=== PATIENT | female | born 1935 | race Caucasian/White ===

== ENCOUNTER 2017-05-30 14:35 | Inpatient (IN) | payer OTHER ==
[~2017-05-30] VITALS: Ht 154.9 cm; Wt 70.3 kg
[~2017-05-30 14:35] MED LIST: ALBUTEROL2.5 MG/3 M INH/SOL; ASPIRIN EC81 M1 PO; ASPIRIN81 M4 PO; AUGMENTIN 875-1 EACH PO; CALCIUM 500 +1 EAC5 PO; DIOVAN80 M1 PO; ESCITALOPRAM OX10 MG PO; FUROSEMIDE20 M1 PO; HYDROCODON-ACE1 EAC2 PO; IPRAT-ALBUT 0.5-3 ML INH; LASIX40 M1 PO; LISINOPRIL10 M1 PO; METOPROLOL TART25 M1 PO; NORVASC2.5 M1 PO; OMEPRAZOLE20 M3 PO; PLAVIX75 M1 PO; PRAVACHOL80 M1 PO; PRAVASTATIN SOD80 M2 PO; PREDNISONE10 M2 PO; PROAIR HFA8.5 GM INH; SENNA S TABLET1 EACH PO; SINGULAIR10 M1 PO; SPIRIVA RESPIMAT4 G1 INH; SPIRIVA18 MCG INH; SYMBICORT 16010.2 GM INH; TESSALON PERLE100 M1 PO; TYLENOL #31 TAB PO
--- NOTE | 2017-05-30 14:58 | ED DYSPNEA/ASTHMA COMPLAINT ---
History of Present Illness General Chief Complaint: Dyspnea (COPD, CHF, Other) Stated Complaint: SOB Source: patient, family Exam Limitations: no limitations Vital Signs & Intake/Output Vital Signs & Intake/Output Vital Signs Date Time Temp Pulse Resp B/P B/P Pulse O2 O2 Flow FiO2 Mean Ox Delivery Rate 05/30 1735 99.0 05/30 1657 99.0 122 24 100/62 94 Room Air 05/30 1633 Room Air Room Air 05/30 1553 100.8 05/30 1513 95 05/30 1449 100.8 105 22 157/97 92 Room Air Allergies Coded Allergies: No Known Allergies (03/16/17) Triage Note: PT TO ED FOR PRODUCTIVE COUGH, SOB AND GENERALZIED WEAKNESS X 1 DAY. Triage Nurses Notes Reviewed? yes Onset: Gradual Duration: day(s): (3) Timing: remote history Severity: moderate Activities at Onset: none Prior Episodes/Possible Cause: occasional episodes Modifying Factors: Improves With: immobilization. Worsens With: movement. Associated Symptoms: cough HPI: Patient is a 81-year-old female with history of asthma and COPD, remote history of pneumonia presenting to the emergency department she complained of worsening shortness of breath, wheezing and cough that has been intermittently productive of yellow sputum over the past 3-4 days. Tactile fevers and chills at home. Generalized malaise. Symptoms rapidly progressed this afternoon. Patient not getting any relief with that home inhalers. No chest pain or palpitations. Positive shortness of breath gets worse with exertion. Denies abdominal pain. No nausea or vomiting. No sick contacts or recent travel. Per daughter patient was admitted in February of last year for pneumonia, symptoms started similarly. (Lily Charles) Reconcile Medications Albuterol Sulfate 2.5 MG/3 ML (0.083 %) VIAL.NEB 1 Vial INH/MANDY Q6H PRN WHEEZING (Reported) Albuterol Sulfate (Proair Hfa) 90 MCG HFA.AER.AD 2 PUF INH Q4-6 PRN PRN asthma (Reported) Aspirin (Ecotrin*) 81 MG TABLET. 1 TAB PO DAILY heart health (Reported) LAST TAKEN 03/17/17 @ 0949 Budesonide/Formoterol Fumarate (Symbicort 160-4.5 Mcg Inhaler) 160 MCG-4.5 MCG/ ACTUATION HFA.AER.AD 2 PUF INH BID ASTHMA (Reported) LAST GIVEN 03/17/17 @ 0949 Calcium Carbonate/Vitamin D3 (Calcium 500 + D Tablet) (Unknown Strength) TABLET (Unknown Dose) PO QAM SUPPLEMENT (Reported) Clopidogrel Bisulfate (Plavix) 75 MG TABLET 1 TAB PO DAILY HEART Escitalopram Oxalate 10 MG TABLET 1 TAB PO DAILY depression (Reported) LAST GIVEN 03/17/17 @ 0949 Furosemide (Lasix) 20 MG TABLET 1 TAB PO DAILY DIURETIC (Reported) Furosemide (Lasix) 40 MG TABLET 1 TAB PO DAILY HEART Hydrocodone/Acetaminophen (Hydrocodon-Acetaminophen 5-325) 5 MG-325 MG TABLET 1 TAB PO Q4H PRN PAIN (Reported) Ipratropium/Albuterol Sulfate (Iprat-Albut 0.5-3(2.5) MG/3 Ml) 0.5 MG-3 MG (2.5 MG BASE)/3 ML AMPUL.NEB 1 VIAL INH Q6H PRN RESP. (Reported) Lisinopril 10 MG TABLET 1 TAB PO DAILY HEART Metoprolol Tartrate 25 MG TABLET 0.5 TAB PO BID HEART Montelukast Sodium (Singulair) 10 MG TABLET 1 TAB PO DAILY ASTHMA COPD Omeprazole 20 MG TABLET.DR 1 TAB PO BID GERD (Reported) Pravastatin Sodium 80 MG TABLET 1 TAB PO DAILY HLD (Reported) Sennosides/Docusate Sodium (Senna S Tablet) 8.6 MG-50 MG TABLET 1 TAB PO DAILY PRN CONSTIPATION Tiotropium Irene (Spiriva Respimat) 1.25 MCG/ACTUATION MIST.INHAL 1 PUFF INH AD PRN RESP. (Reported) Tiotropium Irene (Spiriva) 18 MCG CAP.W.DEV 1 CAP INH DAILY ASTHMA ( Reported) (Jad Law MD) Past History Travel History Traveled to [place] past 21 day No Medical History Any Pertinent Medical History? see below for history Neurological: NONE EENT: NONE Cardiovascular: hypertension Respiratory: asthma, COPD, pneumonia Gastrointestinal: NONE Hepatic: NONE Renal: NONE Musculoskeletal: NONE Psychiatric: NONE Endocrine: NONE Blood Disorders: NONE Cancer(s): NONE PHARMACOVIGILANCE SPECIALIST/Reproductive: NONE History of MRSA: No History of VRE: No History of CDIFF: No Influenza Vaccine: 01/15/17 Surgical History Surgical History: R AND L KNEE REPLACEMENTS R AND L SHOULDER REPLACEM Psychosocial History Who do you live with Patient/Self Services at Home Nursing, Physical Therapy What is your primary language American Tobacco Use: Quit >30 days ago ETOH Use: denies use Illicit Drug Use: denies illicit drug use Family History Hx Contributory? No (Lily Charles) Review of Systems Review of Systems Constitutional: Reports: fever, malaise. Comments Review of systems: See HPI, All other systems negative. Constitutional, no weight loss HEENT: No visual changes no sore throat Cardiovascular: No chest pain ,palpitation , orthopnea or ankle swelling Skin, no jaundice no rashes Respiratory: No hemoptysis GI: No nausea no vomiting : No dysuria No hematuria Muscle skeletal: no back pain, no neck pain, Neurologic: No numbness no confusion, no headaches Psych: No stress anxiety or depression,. Heme/endocrine: No bruising no bleeding no polyuria or polydipsia Immunology: No splenectomy or history of AIDS (Lily Charles) Physical Exam Physical Exam General Appearance: well developed/nourished, alert, awake, mild distress Respiratory: accessory muscle use, rhonchi, wheezing Comments: Well-developed well-nourished person in no acute distress HEENT: extraocular motion intact, no nystagmus. Pupils equally round and reactive to light and accommodation. Nose is atraumatic. External auditory canal and Tympanic membranes clear. Pharynx normal. No swelling or edema. Dry oral mucosa. Neck: Supple, no lymphadenopathy Back: Nontender Cardiovascular: TACHY rate and rhythms no murmurs rubs or gallops, normal JVP Respiratory: Chest nontender. Mild TO MOD respiratory distress..Scattered wheezing and rhonchi to auscultation bilaterally Abdomen: Soft, nontender nondistended, no appreciable organomegaly. Normal bowel sounds. No ascites, no rebound or guarding. Extremity: No edema, no calf tenderness to palpation, normal and equal pulses. Neuro: Alert oriented x3 Skin: No appreciable rash on exposed skin, skin is warm and dry. Psych: Mood and affect is normal, memory and judgment is normal. Core Measures ACS in differential dx? No CVA/TIA Diagnosis No Sepsis Present: No Sepsis Focused Exam Completed? No (Lily Charles) Progress Differential Diagnosis: asthma, AMI, bronchitis, costochondritis, CHF, COPD, pneumonia, pneumothorax Plan of Care: Orders Procedure Date/time Status CBC WITHOUT DIFFERENTIAL 05/31 0600 Active BASIC ELECTROLYTES PLUS BUN&CR 05/31 0600 Active Regular Diet 05/30 D Active STREP PNEUMO URINARY ANTIGEN 05/30 1727 Active LEGIONELLA URINARY ANTIGEN 05/30 1727 Active Patient Data 05/30 1722 Active OXYGEN SETUP (GEN) 05/30 171 Active Saline Lock 05/30 171 Active Admit to inpatient 05/30 1715 Active Vital Signs 05/30 1715 Active Activity/Ambulation 05/30 1715 Active Code Status 05/30 1715 Active URINALYSIS 05/30 1559 Complete Add-on Test (ER Only) 05/30 1557 Active RAPID VIRAL INFLUENZA A 05/30 1515 Complete TROPONIN LEVEL 05/30 1500 Complete MAGNESIUM 05/30 1500 Complete Telemetry/Hand Heel Seat Fitter 05/30 1457 Active BLOOD CULTURE 05/30 1457 Active COMPREHENSIVE METABOLIC PANEL 05/30 1457 Complete CBC WITHOUT DIFFERENTIAL 05/30 1457 Complete EKG 05/30 1436 Active Current Medications Sig/Alessandra Start time Last Medication Dose Stop Time Status Admin Azithromycin 500 MG DAILY 05/31 1000 UNVr (Zithromax) Dextrose/Water 250 ML (D5W) Azithromycin 500 MG ONCE ONE 05/30 1715 AC 05/30 (Zithromax) 05/30 1814 1734 Dextrose/Water 250 ML (D5W) Sodium Chloride 1,000 ML BOLUS ONE 05/30 1714 AC 05/30 (Normal Saline 0.9%) 05/30 1914 1734 Laboratory Tests 05/30/17 1600: Urine Color STRAW, Urine Clarity CLEAR, Urine pH 6.5, Ur Specific [place] 1.015, Urine Protein NEG, Urine Ketones NEG, Urine Nitrite NEG, Urine Bilirubin NEG, Urine Urobilinogen 0.2, Ur Leukocyte Esterase NEG, Ur Microscopic EXAM NOT REQUIRED, Urine Hemoglobin NEG, Urine Glucose NEG 05/30/17 1500: Anion Gap 15, Estimated GFR > 60, BUN/Creatinine Ratio 12.5, Glucose 98, Calcium 9.8, Magnesium 1.9, Total Bilirubin 0.2, AST 24, ALT 26, Alkaline Phosphatase 82 , Troponin I < 0.01, Total Protein 6.8, Albumin 4.2, Globulin 2.6, Albumin/ Globulin Ratio 1.6, CBC w Diff NO MAN DIFF REQ, RBC 4.39, MCV 83.6, MCH 27.4, MCHC 32.8 L, RDW 17.8 H, MPV 8.3, Gran % 80.6 H, Lymphocytes % 5.7 L, Monocytes % 7.7, Eosinophils % 5.2 H, Basophils % 0.8, Absolute Granulocytes 7.2 H, Absolute Lymphocytes 0.5 L, Absolute Monocytes 0.7 H, Absolute Eosinophils 0.5, Absolute Basophils 0.1 05/30/17 1459: Magnesium Cancelled Microbiology 05/30 172 URINE ROUT: Legionella Antigen - ORD 05/30 172 URINE ROUT: Streptococcus pneumoniae Antigen (M - ORD 05/30 1550 NASOPHARYN: Influenza Virus A & B Rapid Smear - COMP 05/30 1550 BLOOD: Blood Culture - RECD 05/30 1500 BLOOD: Blood Culture - RECD \Patient still having increased work of breathing and diffuse wheezing and rhonchi with several breathing treatments, Solu-Medrol, IV magnesium, Robitussin with codeine. Patient does desat to 90% on room air with increased worker breathing with ambulation. Patient will be admitted for asthma exacerbation/ bronchitis. She will require continuous nebulizer treatments, IV steroids, pulmonology consultation. Discharge at this time is medically harmful IT WILL likely lead to worsening symptoms. Diagnostic Imaging: Viewed by Me: Radiology Read. Discussed w/RAD: Radiology Read. Radiology Impression: PATIENT: ERIN MEDINA PRESENT AGE: 81 PATIENT ACCOUNT NO: [id number] : 37 LOCATION: [facility] ORDERING PHYSICIAN: Lily CASAS SERVICE DATE: 05/30/17 EXAM TYPE: RAD - XRY-PORTABLE CHEST XRAY EXAMINATION: XR PORTABLE CHEST CLINICAL INFORMATION: Cough, congestion COMPARISON: CTA chest 04/23/2017, chest x-ray 02/15/2017 TECHNIQUE: Portable frontal view of the chest was obtained. FINDINGS: Lungs appear mildly hyperinflated. Mild biapical pleural-parenchymal thickening is stable. Mild prominence of interstitial markings at the lung bases is likewise stable. No consolidation or effusion. The cardiomediastinal contours appear unchanged. By humeral prostheses are noted. 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 No superimposed pneumonia. No interval change. DICTATED BY: Tiffanie Tolbert MD DATE/TIME DICTATED:05/30/17 1545 CQ DEVELOPER:ESTEPHANIE DATE/TIME TRANSCRIBED:05/30/17 / 1545 CONFIDENTIAL, DO NOT COPY WITHOUT APPROPRIATE AUTHORIZATION. <Electronically signed in Other Vendor System> SIGNED BY: Tiffanie Tolbert MD 05/30/17 1550 Initial ED EKG: SINUS TACHY 107 (Lily Charles) Departure Departure Time of Disposition: 171 Disposition: STILL A PATIENT Condition: Stable Clinical Impression Primary Impression: Bronchitis Referrals: Jacque Santillan MD (PCP/Family) Departure Forms: Customer Survey General Discharge Information Admission Note Spoke With: Sulma Sullivan MD Documentation of Exam: Documentation of any treatments & extenuating circumstances including Concerns Regarding Discharge (functional status, medication knowledge or non-compliance, living conditions, etc.) that warrant an admission rather than observation: Patient requiring serial neb treatments, IV steroids, pulmonology consultation, discharge at this time is medically harmful. Patient requiring supplemental oxygen at this time to help with dyspnea. This is new for the patient. Titration off O2. (Lily Charles) PA/PORCELAIN FINISHER Co-Sign Statement Statement: ED Attending supervision documentation- x I saw and evaluated the patient. I have also reviewed all the pertinent lab results and diagnostic results. I agree with the findings and the plan of care as documented in the PA's/PORCELAIN FINISHER's documentation. Severe asthma exacerbation despite multiple interventions. [] I have reviewed the ED Record and agree with the PA's/PORCELAIN FINISHER's documentation. [] Additions or exceptions (if any) to the PAs/PORCELAIN FINISHER's note and plan are summarized below: [] (Thanh CARVER,Jad) Critical Care Note Critical Care Note Critical Care Time: non-applicable (Lily Charles)
[2017-05-30 15:33] LABS: ABSOLUTE BASOPHIL COUNT 0.1 /CUMM (0.0-0.2); ABSOLUTE EOSINOPHIL COUNT 0.5 /CUMM (0.0-0.7); ABSOLUTE GRANULOCYTE CT 7.2 /CUMM (1.4-6.5); ABSOLUTE LYMPH COUNT 0.5 /CUMM (1.2-3.4); ABSOLUTE MONOCYTE COUNT 0.7 /CUMM (0.10-0.60); BASOPHIL % 0.8 % (0.0-2.0); EOSINOPHIL % 5.2 % (0-5); GRANULOCYTE % 80.6 % (42.2-75.2); HEMATOCRIT 36.7 % (37-47); MEAN CORPUSCULAR HGB 27.4 PG (27.0-31.0); MEAN CORPUSCULAR HGB CONC 32.8 G/DL (33.0-37.0); MEAN CORPUSCULAR VOLUME 83.6 FL (81.0-99.0); MEAN PLATELET VOLUME 8.3 FL (7.4-10.4); PLATELET COUNT 539 /CUMM (130-400); RBC DISTRIBUTION WIDTH 17.8 % (11.5-14.5); RED BLOOD CELL CT 4.39 /CUMM (4.20-5.40)
--- NOTE | 2017-05-30 15:50 | RADIOLOGY REPORT ---
EXAMINATION: XR PORTABLE CHEST CLINICAL INFORMATION: Cough, congestion COMPARISON: CTA chest 04/23/2017, chest x-ray 02/15/2017 TECHNIQUE: Portable frontal view of the chest was obtained. FINDINGS: Lungs appear mildly hyperinflated. Mild biapical pleural-parenchymal thickening is stable. Mild prominence of interstitial markings at the lung bases is likewise stable. No consolidation or effusion. The cardiomediastinal contours appear unchanged. By humeral prostheses are noted. 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 No superimposed pneumonia. No interval change.
--- NOTE | 2017-05-30 17:37 | History & Physical ---
[facility] 05/30/17 1737: General Information and HPI MD Statement: I have seen and personally examined ERIN MEDINA and documented this H&P. The patient is a 81 year old F who presented with a patient stated chief complaint of cough and sputum, weakness and shortness of breath since this afternoon.[]. Source of Information: patient, family, old records Exam Limitations: no limitations History of Present Illness: 81 YO F former smoker (quit 30 years back) with PMH of HTN, COPD not on home O2, pneumonia, B/L knee and shulder replacements came to ED with chief complaint of cough with sputum, weakness and shortness of breath on exertion since this afternoon. According to the patient she was in her usual state of health last night then she started suddenly having cough and her condition progressively worsened. This afternoon patient was feeling weak and she had progressively worsening cough with yellow colored sputum without blood or foul-smelling of the sputum. Patient also reported having shortness of breath on exertion that started this afternoon, previously patient was walking around fine without assistance. Patient also reported that she also has chest congestion while coughing and sometimes she feels dizzy even while lying in the bed. Patient denied any chest pain, palpitations, chills, nausea, vomiting, sick contacts, tick bite, loss of consciousness, mechanical fall, abdominal pain and dysuria. Patient reported that she had flu shot in January 2017 and she is following her primary care physician regularly. She is also following her web software engineer regularly who did the stress test recently last week that was negative. Her last echocardiogram was in April 2017 that was showing 65-70% ejection fraction with stage I diastolic filling. Patient also reported that her primary care and web software engineer recently stopped Plavix, lisinopril and metoprolol as her blood pressure remained on the lower side. Patient also reported that she had recent mechanical fall last week but patient he didn't lost consciousness or hit her head during the fall. She reported that she can move independently without using cane or walker. ED course: Vitals: Temperature 100.8, pulse 105, respiratory rate 22, blood pressure 157/97 , oxygen saturation 92% on room air. Labs: WBC count 9.0, hemoglobin 12.0, hematocrit 36.7, platelet count 539, sodium 143, potassium 4.2, BUN 10, creatinine 0.8, anion gap 15, troponin less than 0.01, calcium 9.8, glucose 98, BUN 6 creatinine ratio 12.5, magnesium 1.9. Rapid flu test negative Allergies/Medications Allergies: Coded Allergies: No Known Allergies (03/16/17) Past History Travel History Traveled to [place] past 21 day No Medical History Neurological: NONE EENT: NONE Cardiovascular: hypertension Respiratory: asthma, COPD, pneumonia Gastrointestinal: NONE Hepatic: NONE Renal: NONE Musculoskeletal: NONE Psychiatric: NONE Endocrine: NONE Blood Disorders: NONE Cancer(s): NONE CARGO WORKER/Reproductive: NONE History of MRSA: No History of VRE: No History of CDIFF: No Influenza Vaccine: 01/15/17 Surgical History Surgical History: R AND L KNEE REPLACEMENTS R AND L SHOULDER REPLACEM Past Family/Social History Psychosocial History Services at Home: Nursing, Physical Therapy ETOH Use: denies use Illicit Drug Use: denies illicit drug use Functional Ability ADLs Independent: dressing, eating, toileting, bathing. Review of Systems Review of Systems Constitutional: Reports: weakness. EENTM: Reports: no symptoms. Cardiovascular: Reports: no symptoms. Respiratory: Reports: cough, short of breath, sputum production. GI: Reports: no symptoms. Genitourinary: Reports: no symptoms. Musculoskeletal: Reports: no symptoms. Neurological/Psychological: Reports: no symptoms. Exam & Diagnostic Data Last 24 Hrs of Vital Signs/I&O Vital Signs Date Time Temp Pulse Resp B/P B/P Pulse O2 O2 Flow FiO2 Mean Ox Delivery Rate 05/30 1844 98.6 116 20 91/55 93 Nasal 2.0L Cannula 05/30 1735 99.0 05/30 1657 99.0 122 24 100/62 94 Room Air 05/30 1633 Room Air Room Air 05/30 1553 100.8 05/30 1513 95 05/30 1449 100.8 105 22 157/97 92 Room Air Intake & Output 05/30 1600 05/30 0800 05/30 0000 Intake Total Output Total Balance Patient 155 lb Weight Weight Reported by Patient Measurement Method Physical Exam General Appearance Alert, Oriented X3, Cooperative Skin Temp/Moisture Exam: Warm/Dry Sepsis Skin Exam (color): Normal for Ethnicity HEENT Atraumatic, PERRLA, EOMI Neck Supple Cardiovascular Normal S1, Normal S2 Lungs wheezing b/l, Decreased breath sound b/l Abdomen Soft, No Tenderness Neurological Normal Speech, Strength at 5/5 X4 Ext, Normal Tone, Sensation Intact Extremities No Edema Last 24 Hrs of Labs/Anderson: Laboratory Tests 05/30/17 1600: Urine Color STRAW, Urine Clarity CLEAR, Urine pH 6.5, Ur Specific [place] 1.015, Urine Protein NEG, Urine Ketones NEG, Urine Nitrite NEG, Urine Bilirubin NEG, Urine Urobilinogen 0.2, Ur Leukocyte Esterase NEG, Ur Microscopic EXAM NOT REQUIRED, Urine Hemoglobin NEG, Urine Glucose NEG 05/30/17 1500: Anion Gap 15, Estimated GFR > 60, BUN/Creatinine Ratio 12.5, Glucose 98, Calcium 9.8, Magnesium 1.9, Total Bilirubin 0.2, AST 24, ALT 26, Alkaline Phosphatase 82 , Troponin I < 0.01, Total Protein 6.8, Albumin 4.2, Globulin 2.6, Albumin/ Globulin Ratio 1.6, CBC w Diff NO MAN DIFF REQ, RBC 4.39, MCV 83.6, MCH 27.4, MCHC 32.8 L, RDW 17.8 H, MPV 8.3, Gran % 80.6 H, Lymphocytes % 5.7 L, Monocytes % 7.7, Eosinophils % 5.2 H, Basophils % 0.8, Absolute Granulocytes 7.2 H, Absolute Lymphocytes 0.5 L, Absolute Monocytes 0.7 H, Absolute Eosinophils 0.5, Absolute Basophils 0.1 05/30/17 1459: Magnesium Cancelled Microbiology 05/30 1727 URINE ROUT: Legionella Antigen - ORD 05/30 1727 URINE ROUT: Streptococcus pneumoniae Antigen (M - ORD 05/30 1550 NASOPHARYN: Influenza Virus A & B Rapid Smear - COMP 05/30 1550 BLOOD: Blood Culture - RECD 05/30 1500 BLOOD: Blood Culture - RECD Assessment/Plan Assessment: 81 YO F former smoker (quit 30 years back) with PMH of HTN, COPD not on home O2, pneumonia, B/L knee and shulder replacements came to ED with chief complaint of cough with sputum, weakness and shortness of breath on exertion since this afternoon. We will admit the patient on general medicine floor to treat her COPD exacerbation due to acute bronchitis. COPD exacerbation due to acute bronchitis: -We'll continue oxygen supplementation to maintain saturation above 90%. -TRC nebulization -IV azithromycin for 5 days. -IV Solu-Medrol 40 mg every 8 hourly. -We will follow the blood and sputum cultures. -Chest physiotherapy -Incentive spirometer. History of hyperlipidemia: We will continue pravastatin. History of CAD and hypertension: -We will continue Lasix. -We will continue aspirin. History of depression: -We will continue escitalopram. DVT prophylaxis: Mechanical and Lovenox CODE STATUS: Full code As Ranked By This Provider Problem List: 1. Bronchitis 2. COPD exacerbation Core Measures/Misc (01/18) Acute Coronary Syndrome ACS Diagnosis: No Congestive Heart Failure Congestive Heart Failure Diagnosis No Cerebrovascular Accident CVA/TIA Diagnosis: No VTE (View Protocol) VTE Risk Factors Age>40 No Mechanical VTE Prophylaxis d/t N/A MechProphylax Ordered No VTE Pharm Prophylaxis d/t NA PharmProphylax ordered Sepsis (View protocol) Sepsis Present: No Arely Brown 05/30/17 4706: General Information and HPI Allergies/Medications Home Med list Albuterol Sulfate 2.5 MG/3 ML (0.083 %) VIAL.NEB 1 Vial INH/MANDY Q6H PRN WHEEZING (Reported) Albuterol Sulfate (Proair Hfa) 90 MCG HFA.AER.AD 2 PUF INH Q4-6 PRN PRN asthma (Reported) Aspirin (Ecotrin*) 81 MG TABLET.DR 1 TAB PO DAILY heart health (Reported) LAST TAKEN 03/17/17 @ 0949 Budesonide/Formoterol Fumarate (Symbicort 160-4.5 Mcg Inhaler) 160 MCG-4.5 MCG/ ACTUATION HFA.AER.AD 2 PUF INH BID ASTHMA (Reported) LAST GIVEN 03/17/17 @ 0949 Calcium Carbonate/Vitamin D3 (Calcium 500 + D Tablet) (Unknown Strength) TABLET (Unknown Dose) PO QAM SUPPLEMENT (Reported) Escitalopram Oxalate 10 MG TABLET 1 TAB PO DAILY depression (Reported) LAST GIVEN 03/17/17 @ 0949 Furosemide (Lasix) 20 MG TABLET 1 TAB PO DAILY DIURETIC (Reported) Omeprazole 20 MG TABLET.DR 1 TAB PO BID GERD (Reported) Pravastatin Sodium 80 MG TABLET 1 TAB PO DAILY HLD (Reported) Tiotropium Gatzke (Spiriva) 18 MCG CAP.W.DEV 1 CAP INH DAILY ASTHMA ( Reported) Past History Medical History Cardiovascular: hypertension Respiratory: asthma, COPD, pneumonia Past Family/Social History Psychosocial History Where do you live? Home Who Do You Live With? child, DAUGHTER Functional Ability ADLs Independent: dressing, eating, toileting, bathing. Ambulation: independent Resident Review Statement Resident Statement: discussed with advertising internship Other Findings: Patient is 81 year old female with PMH of asthma, COPD (quit smoking), hypertension who came with chief complain of difficulty breathing. Patient was accompanied by her daughter in the room and they report that patient didn't feel weel last night and started coughing a lot. this morning her cough got worsen with yellowish phleum and she also felt feverish. Patient denies any sick contacts at home and any previous intubations. Patient had a flu shot this season and her rapid flu was negative in ER. Patient came with similar complains in the past in Feb 2017 when she was admitted for pneumonia for 10 days. Patient denies any chest pain (other than the one accompanied with coug), dizziness, palpitations, abdominal discomfort etc. CXR- does not show any evidence of pneumonia Assessment and Plan WIll admit the patient on general Medicine floor, start her on azithromycin x 5 days, solumedrol (patient has b/l wheezes on physical exam), trc nebs as needed. will continue her on her home inhailers will continue her home meds including pravastation, omeprazole, lasix, escitalopram, aspirin. DVT ppx lovenox patient is Full code Raoul CARVER, [facility] 05/30/17 1843: Attending MD Review Statement Attending Statement Attending MD Statement: examined this patient, discuss w/resident/PA/BEEF SKINNER, agreed w/resident/PA/BEEF SKINNER Attending Assessment/Plan: 81 yo F with h/o asthma/COPD not on home O2, HTN, aortic stenosis, GERD, depression, is here for evaluation of 2-day h/o cough productive of yellow phlegm, associated with exertional dyspnea and mid chest pain worse with inspiration and coughing. Wheezing+, weakness, fatigue and subjective fevers. Tried using her inhalers without relief. She has a raspy/ hoarse voice which she attributes to constant coughing. Denies sick contacts, did get her flu and pneumonia vaccines. Never intubated. Daughter at bedside reports: 1. Patient sees Dr. Blair and is due for appointment on Thursday. 2. She also follows with Dr. Franco, had a recent stress test reports not known. Compared to her recent admission (Apr 2017 for bronchitis, Type 2 [facility]), patient has been taken off lisinopril and metoprolol (due to fluctuating BP), and plavix. Her lasix dose has been reduced to 20 mg daily (instead of 40 mg). 3. Patient has also been a little unsteady on her feet over the past 3 months, with resultant fall this month, no head trauma or LOC. Patient does not use a cane or walker at home. Vitals: Tmax 100.8, HR 100-120's, BP 100/62 --> 91/55, sats 93-95% on 2L, desats to 90% on RA on ambulation. Exam: AAO, in mild respiratory distress with minimal movement in her bed, MMM, Neck supple, Chest b/l reduced air entry with expiratory wheeze+, Heart S1S2 regular, systolic murmur+, LE trace edema. Labs: no leukocytosis, eosinophils 5.2%, troponin neg. UA neg. Flu swab neg. CXR: underlying COPD/emphysema, no superimposed pneumonia. Echo (2016): EF 65-70%, stage 1 diastolic dysfunction, mild aortic stenosis, mild to moderate tricuspid insufficiency, elevated RVSP. EKG: Sinus tachycardia, Qtc 449. Assessment and plan: 1. Hypoxia 2. Acute bronchitis 3. Exacerbation of asthma-COPD with eosinophilia 4. Tachycardia 2/2 continuous albuterol nebs 5. Transient hypotension 6. Pleuritic chest pain - Admit to general medicine - [facility] nebs - Sputum culture, check urine legionella and strep Ag - IV solumedrol 40 Q8 - Azithromycin for 5 days - Continue symbicort - Hold spiriva as patient will be getting ipratropium while inpatient - Pulm consult (Dr. Blair) - Add mucinex BID - Patient was on singulair in the past, please discuss with Pulm to resume this. - Gentle IV fluids x 1 bag - Repeat EKG and troponin in AM - PT eval DVT ppx Lovenox. Full code.
[2017-05-30] MEDS ORDERED: SPIRIVA18 MCG INH (17:39)
[2017-05-30] MEDS ORDERED: LASIX20 M1 PO (17:40)
--- NOTE | 2017-05-30 19:11 | Admission Certification ---
Admission Certification Certification Statement - As attending physician, I certify that at the time of - admission, based on clinical presentation, severity of - symptoms, need for further diagnostic testing and - therapeutic interventions, and risk of adverse outcomes - without in-hospital treatment, in my clinical assessment, - this patient requires an acute hospital stay for a minimum - of two nights or longer. I have also considered psychsocial - factors such as support system, advanced age, financial - issues, cognitive issues, and failed out-patient treatments, - past re-admission history, safety of patient, and lack of - compliance as applicable. Specific rationale supporting this admission is: Hypoxia, acute bronchitis, asthma-COPD exacerbation.
[2017-05-31 06:18] VITALS: BP 130/72
--- NOTE | 2017-05-31 07:41 | PN- Housestaff ---
[facility] Subjective Follow-up For: COPD exacerbation due to acute bronchitis Subjective: No overnight events. Patient remained afebrile overnight. Seen and examined this morning. She is using 2 units of oxygen and maintaining saturation 94%. Patient reported having cough and bringing some yellow sputum. And she also having exertional dyspnea and headache that is 4/10. Patient denied any chest pain, nausea vomiting, abdominal pain, lightheadedness and dysuria. Review of Systems Constitutional: Reports: no symptoms. EENTM: Reports: no symptoms. Cardiovascular: Reports: no symptoms. Respiratory: Reports: cough, short of breath, sputum production. Gastrointestinal: Reports: no symptoms. Genitourinary: Reports: no symptoms. Musculoskeletal: Reports: no symptoms. Neurological/Psychological: Reports: headache. Objective Last 24 Hrs of Vital Signs/I&O Vital Signs Date Time Temp Pulse Resp B/P B/P Pulse O2 O2 Flow FiO2 Mean Ox Delivery Rate 05/31 0800 96 Nasal 2.0L Cannula 05/31 0618 97.5 90 20 130/72 94 05/31 0000 92 Nasal 2.0L Cannula 05/30 2106 Nasal 3.0L Cannula 05/30 2008 Nasal 2.0L Cannula 05/30 1844 98.6 116 20 91/55 93 Nasal 2.0L Cannula 05/30 1735 99.0 05/30 1657 99.0 122 24 100/62 94 Room Air 05/30 1633 Room Air Room Air 05/30 1553 100.8 05/30 1513 95 05/30 1449 100.8 105 22 157/97 92 Room Air Intake & Output 05/31 1600 05/31 0800 05/31 0000 Intake Total 850 500 Output Total Balance 850 500 Intake, IV 600 250 Intake, Oral 250 250 Patient 155 lb Weight Weight Reported by Patient Measurement Method Physical Exam General Appearance: Alert, Oriented X3, Cooperative Skin Temp/Moisture Exam: Warm/Dry Sepsis Skin Exam (color): Normal for Ethnicity HEENT: Atraumatic, PERRLA, EOMI Neck: Supple Cardiovascular: Normal S1, Normal S2 Lungs: wheezing b/l Abdomen: Soft, No Tenderness Neurological: Normal Speech, Strength at 5/5 X4 Ext, Normal Tone, Sensation Intact Extremities: No Edema Assessment/Plan Assessment: 81 YO F former smoker (quit 30 years back) with PMH of HTN, COPD not on home O2, pneumonia, B/L knee and shulder replacements came to ED with chief complaint of cough with sputum, weakness and shortness of breath on exertion since this afternoon. We will admit the patient on general medicine floor to treat her COPD exacerbation due to acute bronchitis. COPD exacerbation due to acute bronchitis: -We'll continue oxygen supplementation to maintain saturation above 90%. -TRC nebulization -IV azithromycin for 5 days. -IV Solu-Medrol 40 mg every 8 hourly. -We will follow the blood and sputum cultures. -Chest physiotherapy -Incentive spirometer. History of hyperlipidemia: We will continue pravastatin. History of CAD and hypertension: -We will continue Lasix. -We will continue aspirin. History of depression: -We will continue escitalopram. DVT prophylaxis: Mechanical and Lovenox CODE STATUS: Full code Problem List: 1. Bronchitis 2. COPD exacerbation Pain Ratin Pain Location: headache Pain Goal: Remain pain free Pain Plan: pain pathway Tomorrow's Labs & Rationales: cbc/bep Nate CARVER,[facility] 05/31/17 1332: Attending MD Review Statement Attending Statement Attending MD Statement: examined this patient, discuss w/resident/PA/SENIOR MAINFRAME DEVELOPER, agreed w/resident/PA/SENIOR MAINFRAME DEVELOPER, discussed with family, reviewed EMR data (avail), discussed with nursing, discussed with case mgmt, reviewed images, amended to note Attending Assessment/Plan: Patient seen and examined, not feeling better. Still having difficulty breathing , diffuse wheezing. Vital Signs Date Time Temp Pulse Resp B/P B/P Pulse O2 O2 Flow FiO2 Mean Ox Delivery Rate 05/31 0800 96 Nasal 2.0L Cannula 05/31 0618 97.5 90 20 130/72 94 05/31 0000 92 Nasal 2.0L Cannula 05/30 2106 Nasal 3.0L Cannula 05/30 2008 Nasal 2.0L Cannula 05/30 1844 98.6 116 20 91/55 93 Nasal 2.0L Cannula 05/30 1735 99.0 05/30 1657 99.0 122 24 100/62 94 Room Air 05/30 1633 Room Air Room Air 05/30 1553 100.8 05/30 1513 95 05/30 1449 100.8 105 22 157/97 92 Room Air on exam; aox3, mild distress 2/2 to difficulty breathing. cv; s1, s2, rrr resp; + diffuse wheeze. abd; soft, nt, bs+ ext; no edema. Laboratory Tests 05/31 05/31 0800 0705 Chemistry Sodium (137 - 145 mmol/L) 141 Potassium (3.5 - 5.1 mmol/L) 4.1 Chloride (98 - 107 mmol/L) 106 Carbon Dioxide (22 - 30 mmol/L) 22 Anion Gap (5 - 16) 13 BUN (7 - 17 mg/dL) 14 Creatinine (0.5 - 1.0 mg/dL) 0.7 Estimated GFR (>60 ml/min) > 60 BUN/Creatinine Ratio (7 - 25 %) 20.0 Troponin I (< 0.11 ng/ml) Cancelled 0.09 Hematology CBC w Diff NO MAN DIFF REQ WBC (4.8 - 10.8 /CUMM) 5.0 RBC (4.20 - 5.40 /CUMM) 3.64 L Hgb (12.0 - 16.0 G/DL) 10.0 L Hct (37 - 47 %) 30.3 L MCV (81.0 - 99.0 FL) 83.4 MCH (27.0 - 31.0 PG) 27.4 MCHC (33.0 - 37.0 G/DL) 32.8 L RDW (11.5 - 14.5 %) 18.2 H Plt Count (130 - 400 /CUMM) 430 H MPV (7.4 - 10.4 FL) 8.5 Gran % (42.2 - 75.2 %) 89.7 H Lymphocytes % (20.5 - 51.1 %) 8.7 L Monocytes % (1.7 - 9.3 %) 1.5 L Eosinophils % (0 - 5 %) 0 Basophils % (0.0 - 2.0 %) 0.1 Absolute Granulocytes (1.4 - 6.5 /CUMM) 4.5 Absolute Lymphocytes (1.2 - 3.4 /CUMM) 0.4 L Absolute Monocytes (0.10 - 0.60 /CUMM) 0.1 Absolute Eosinophils (0.0 - 0.7 /CUMM) 0 Absolute Basophils (0.0 - 0.2 /CUMM) 0 05/30 05/30 1600 1550 Serology Virus Culture Pending Urines Urine Color (YEL,AMB,STR) STRAW Urine Clarity (CLEAR) CLEAR Urine pH (5.0 - 8.0) 6.5 Ur Specific [place] (1.001 - 1.035) 1.015 Urine Protein (NEG,<30 MG/DL) NEG Urine Ketones (NEG) NEG Urine Nitrite (NEG) NEG Urine Bilirubin (NEG) NEG Urine Urobilinogen (0.1 - 1.0 EU/dl) 0.2 Ur Leukocyte Esterase (NEG) NEG Ur Microscopic EXAM NOT REQUIRED Urine Hemoglobin (NEG) NEG Urine Glucose (N MG/DL) NEG 05/30 05/30 1500 1459 Chemistry Sodium (137 - 145 mmol/L) 143 Potassium (3.5 - 5.1 mmol/L) 4.2 Chloride (98 - 107 mmol/L) 102 Carbon Dioxide (22 - 30 mmol/L) 26 Anion Gap (5 - 16) 15 BUN (7 - 17 mg/dL) 10 Creatinine (0.5 - 1.0 mg/dL) 0.8 Estimated GFR (>60 ml/min) > 60 BUN/Creatinine Ratio (7 - 25 %) 12.5 Glucose (65 - 99 mg/dL) 98 Calcium (8.4 - 10.2 mg/dL) 9.8 Magnesium (1.6 - 2.3 mg/dL) 1.9 Cancelled Total Bilirubin (0.2 - 1.3 mg/dL) 0.2 AST (14 - 36 U/L) 24 ALT (9 - 52 U/L) 26 Alkaline Phosphatase (<127 U/L) 82 Troponin I (< 0.11 ng/ml) < 0.01 Total Protein (6.3 - 8.2 g/dL) 6.8 Albumin (3.5 - 5.0 g/dL) 4.2 Globulin (1.9 - 4.2 gm/dL) 2.6 Albumin/Globulin Ratio (1.1 - 2.2 %) 1.6 Hematology CBC w Diff NO MAN DIFF REQ WBC (4.8 - 10.8 /CUMM) 9.0 RBC (4.20 - 5.40 /CUMM) 4.39 Hgb (12.0 - 16.0 G/DL) 12.0 Hct (37 - 47 %) 36.7 L MCV (81.0 - 99.0 FL) 83.6 MCH (27.0 - 31.0 PG) 27.4 MCHC (33.0 - 37.0 G/DL) 32.8 L RDW (11.5 - 14.5 %) 17.8 H Plt Count (130 - 400 /CUMM) 539 H MPV (7.4 - 10.4 FL) 8.3 Gran % (42.2 - 75.2 %) 80.6 H Lymphocytes % (20.5 - 51.1 %) 5.7 L Monocytes % (1.7 - 9.3 %) 7.7 Eosinophils % (0 - 5 %) 5.2 H Basophils % (0.0 - 2.0 %) 0.8 Absolute Granulocytes (1.4 - 6.5 /CUMM) 7.2 H Absolute Lymphocytes (1.2 - 3.4 /CUMM) 0.5 L Absolute Monocytes (0.10 - 0.60 /CUMM) 0.7 H Absolute Eosinophils (0.0 - 0.7 /CUMM) 0.5 Absolute Basophils (0.0 - 0.2 /CUMM) 0.1 A/P; 81 y/o F with pmh sig for HTN, COPD not on home O2, pneumonia, B/L knee and shoulder replacements, admitted with acute resp failure, acute COPD/bronchitis. Increase steroids to q6 hours. Continue NEVA connolly nebs. Follow up all the cultures. Will consider pulm consult in 24 hours if no improvement. Continue all the other current meds. DVt px: Lovenox.
[2017-05-31 08:40] LABS: ABSOLUTE BASOPHIL COUNT 0 /CUMM (0.0-0.2); ABSOLUTE EOSINOPHIL COUNT 0 /CUMM (0.0-0.7); ABSOLUTE GRANULOCYTE CT 4.5 /CUMM (1.4-6.5); ABSOLUTE LYMPH COUNT 0.4 /CUMM (1.2-3.4); ABSOLUTE MONOCYTE COUNT 0.1 /CUMM (0.10-0.60); BASOPHIL % 0.1 % (0.0-2.0); EOSINOPHIL % 0 % (0-5); MEAN PLATELET VOLUME 8.5 FL (7.4-10.4)
[2017-05-31 08:47] LABS: MEAN CORPUSCULAR HGB 27.4 PG (27.0-31.0); MEAN CORPUSCULAR HGB CONC 32.8 G/DL (33.0-37.0); MEAN CORPUSCULAR VOLUME 83.4 FL (81.0-99.0); PLATELET COUNT 430 /CUMM (130-400); RBC DISTRIBUTION WIDTH 18.2 % (11.5-14.5); RED BLOOD CELL CT 3.64 /CUMM (4.20-5.40)
[2017-05-31 08:51] LABS: HEMATOCRIT 30.3 % (37-47)
[2017-05-31 10:56] LABS: GRANULOCYTE % 89.7 % (42.2-75.2)
[2017-05-31 15:03] VITALS: BP 108/56
[2017-05-31 21:41] VITALS: BP 104/48
[2017-06-01 06:34] VITALS: BP 142/72
--- NOTE | 2017-06-01 07:25 | PN- Housestaff ---
[facility] 0725: Subjective Follow-up For: COPD exacerbation due to acute bronchitis Subjective: No overnight events. Patient remained afebrile overnight. Seen and examined this morning. She denied any chest pain, palpitation, nausea, vomiting, chills, fever, abdominal pain and dysuria. Patient reported having cough and short of breath. She is using 1 L of oxygen maintaining saturation 94%. Review of Systems Constitutional: Reports: no symptoms. EENTM: Reports: no symptoms. Cardiovascular: Reports: no symptoms. Respiratory: Reports: cough, short of breath. Gastrointestinal: Reports: no symptoms. Genitourinary: Reports: no symptoms. Musculoskeletal: Reports: no symptoms. Neurological/Psychological: Reports: no symptoms. Objective Last 24 Hrs of Vital Signs/I&O Vital Signs Date Time Temp Pulse Resp B/P B/P Pulse O2 O2 Flow FiO2 Mean Ox Delivery Rate 06/01 0843 94 Nasal 1.0L Cannula 06/01 0800 Room Air 06/01 0634 97.6 90 20 142/72 93 06/01 0000 Nasal 1.0L Cannula 05/31 2141 97.9 106 20 104/48 92 Nasal 1.0L Cannula 05/31 1610 94 Room Air 05/31 1600 95 Nasal 1.0L Cannula 05/31 1503 98.3 109 20 108/56 93 05/31 1057 92 Nasal 3.0L Cannula Intake & Output 06/01 1600 06/01 0800 06/01 0000 Intake Total 260 510 Output Total Balance 260 510 Intake, IV 20 30 Intake, Oral 240 480 Number 0 0 Bowel Movements Physical Exam General Appearance: Alert, Oriented X3, Cooperative Skin Temp/Moisture Exam: Warm/Dry Sepsis Skin Exam (color): Normal for Ethnicity HEENT: Atraumatic, PERRLA, EOMI Neck: Supple Cardiovascular: Normal S1, Normal S2 Lungs: Wheezing b/l Abdomen: Soft, No Tenderness Neurological: Normal Speech, Strength at 5/5 X4 Ext, Normal Tone, Sensation Intact Extremities: No Edema Assessment/Plan Assessment: 81 YO F former smoker (quit 30 years back) with PMH of HTN, COPD not on home O2, pneumonia, B/L knee and shulder replacements came to ED with chief complaint of cough with sputum, weakness and shortness of breath on exertion since this afternoon. We will admit the patient on general medicine floor to treat her COPD exacerbation due to acute bronchitis. COPD exacerbation due to acute bronchitis: -We'll continue oxygen supplementation to maintain saturation above 90%. -TRC nebulization -IV azithromycin for 5 days. Day 2. -IV Solu-Medrol 40 mg every 6 hourly. -We will follow the blood and sputum cultures. -Chest physiotherapy -Incentive spirometer. -spiriva once daily inhaler was added. History of hyperlipidemia: We will continue pravastatin. History of CAD and hypertension: -We will continue Lasix. -We will continue aspirin. History of depression: -We will continue escitalopram. DVT prophylaxis: Mechanical and Lovenox CODE STATUS: Full code Problem List: 1. COPD exacerbation 2. Bronchitis Pain Ratin Pain Location: none Pain Goal: Remain pain free Pain Plan: pain pathway Tomorrow's Labs & Rationales: cbc/bep Minnie Rushing MD 06/01/17 1102: Attending MD Review Statement Attending Statement Attending MD Statement: examined this patient, discuss w/resident/PA/POND TENDER, agreed w/resident/PA/POND TENDER, reviewed EMR data (avail) Attending Assessment/Plan: 81F PMH asthma/COPD not on home O2, HTN, aortic stenosis, GERD, depression admitted with COPD exacerbation and acute bronchitis. Patient is comfortable today. She has a persistent dry cough, and becomes short of breath when speaking or with exertion. She still has significant bilateral wheezing. At her baseline of 3L NC. 1. COPD Exacerbation 2. Acute bronchitis Plan - Continue on general medicine - Continue Solumedrol, taper tomorrow - Nebulizer treatments - Continue Azithromycin - Home medications - DVT PPx
[2017-06-01 08:52] LABS: ABSOLUTE BASOPHIL COUNT 0 /CUMM (0.0-0.2); ABSOLUTE EOSINOPHIL COUNT 0 /CUMM (0.0-0.7); ABSOLUTE GRANULOCYTE CT 12.1 /CUMM (1.4-6.5); ABSOLUTE LYMPH COUNT 0.6 /CUMM (1.2-3.4); ABSOLUTE MONOCYTE COUNT 0.4 /CUMM (0.10-0.60); BASOPHIL % 0 % (0.0-2.0); EOSINOPHIL % 0 % (0-5); GRANULOCYTE % 92.2 % (42.2-75.2); HEMATOCRIT 32.1 % (37-47); MEAN CORPUSCULAR HGB 27.1 PG (27.0-31.0); MEAN CORPUSCULAR HGB CONC 32.4 G/DL (33.0-37.0); MEAN CORPUSCULAR VOLUME 83.6 FL (81.0-99.0); MEAN PLATELET VOLUME 8.3 FL (7.4-10.4); PLATELET COUNT 490 /CUMM (130-400); RBC DISTRIBUTION WIDTH 17.8 % (11.5-14.5); RED BLOOD CELL CT 3.84 /CUMM (4.20-5.40)
[2017-06-01 10:03] LABS: WHITE BLOOD CELL COUNT 13.1 /CUMM (4.8-10.8)
--- NOTE | 2017-06-01 12:13 | Cons- Pulmonary ---
General Information and HPI Consulting Request Date of Consult: 06/01/17 Requested By: Dr. Rushing Reason for Consult: dyspnea Source of Information: patient Exam Limitations: no limitations History of Present Illness: The patient is a 81-year-old woman with a past medical history significant for hypertension, asthma, COPD, and GERD. Recent hospitalization for exacerbation of ?reactive airways disease. Leukocytosis and Klebsiella. CXR without infiltrates. On singulair, Symbicort and spiriva. No PFTs on file. Worsened dyspnea, possible sick contacts. No n/v/d/c. no cp, no palpitations, no dowd. Did not get opportunity to get PFTs for baseline. Has been on steroids, overall improved, but still feeling poorly. symbicort with rinsing of the mouth spiriva once daily. singulair. Allergies/Medications Allergies: Coded Allergies: No Known Allergies (03/16/17) Home Med List: Albuterol Sulfate 2.5 MG/3 ML (0.083 %) VIAL.NEB 1 Vial INH/MANDY Q6H PRN WHEEZING (Reported) Albuterol Sulfate (Proair Hfa) 90 MCG HFA.AER.AD 2 PUF INH Q4-6 PRN PRN asthma (Reported) Aspirin (Ecotrin*) 81 MG TABLET.DR 1 TAB PO DAILY heart health (Reported) LAST TAKEN 03/17/17 @ 0949 Budesonide/Formoterol Fumarate (Symbicort 160-4.5 Mcg Inhaler) 160 MCG-4.5 MCG/ ACTUATION HFA.AER.AD 2 PUF INH BID ASTHMA (Reported) LAST GIVEN 03/17/17 @ 0949 Calcium Carbonate/Vitamin D3 (Calcium 500 + D Tablet) (Unknown Strength) TABLET (Unknown Dose) PO QAM SUPPLEMENT (Reported) Escitalopram Oxalate 10 MG TABLET 1 TAB PO DAILY depression (Reported) LAST GIVEN 03/17/17 @ 0949 Furosemide (Lasix) 20 MG TABLET 1 TAB PO DAILY DIURETIC (Reported) Omeprazole 20 MG TABLET.DR 1 TAB PO BID GERD (Reported) Pravastatin Sodium 80 MG TABLET 1 TAB PO DAILY HLD (Reported) Tiotropium [place] (Spiriva) 18 MCG CAP.W.DEV 1 CAP INH DAILY ASTHMA ( Reported) Current Medications: Current Medications Sig/Alessandra Start time Last Medication Dose Route Stop Time Status Admin Acetaminophen 650 MG Q8P PRN 05/31 0330 AC 05/31 PO 2029 Albuterol Sulfate 3 ML TID 05/30 2200 AC 06/01 INH 0840 Albuterol Sulfate 2 PUF Q4-6 PRN PRN 05/30 1830 AC 06/01 INH 0545 Aspirin Buffered 81 MG DAILY 05/31 1000 AC 06/01 PO 0903 Azithromycin 500 MG DAILY@1730 05/31 1730 AC 05/31 Dextrose/Water 250 ML IV 1924 Bisacodyl 5 MG DAILY 06/01 1034 AC PO Budesonide/ 2 PUF BID 05/30 2200 AC 06/01 Formoterol Fumarate INH 0903 Enoxaparin Sodium 40 MG DAILY 05/31 1000 AC 06/01 SC 0903 Escitalopram Oxalate 10 MG AT BEDTIME 05/31 2200 AC 05/31 PO 2132 Furosemide 20 MG DAILY 05/31 1000 AC 06/01 PO 0903 Guaifenesin 600 MG Q12 05/31 0047 AC 06/01 PO 0903 Guaifenesin/Codeine 10 ML ONCE ONE 05/31 2115 DC 05/31 Phosphate PO 05/31 211 2132 Methylprednisolone 40 MG Q6 05/31 1200 AC 06/01 IV 1139 Omeprazole 20 MG BID 05/31 1000 AC 06/01 PO 0903 Polyethylene Glycol 17 GM DAILY 06/01 1033 AC PO Pravastatin Sodium 80 MG 1700 05/30 1915 AC 05/31 PO 1819 Review of Systems Comments 18 point review of systems was performed and reviewed. Please see pertinent positives and pertinent negatives in the HPI. Otherwise ROS is negative. Past History Travel History Traveled to [place] past 21 day No Medical History Blood Transfusion Hx: No Neurological: NONE EENT: NONE Cardiovascular: hypertension Respiratory: asthma, COPD, pneumonia Gastrointestinal: NONE Hepatic: NONE Renal: NONE Musculoskeletal: NONE Psychiatric: NONE Endocrine: NONE Blood Disorders: NONE Cancer(s): NONE WOOD SETTER/Reproductive: NONE Surgical History Surgical History: R AND L KNEE REPLACEMENTS R AND L SHOULDER REPLACEM Family History Relations & Conditions If Any: Relation not specified for: *No pertinent family history Psychosocial History Where Do You Live? Home Who Do You Live With? child, DAUGHTER Services at Home: Nursing, Physical Therapy Smoking Status: Never Smoked ETOH Use: denies use Illicit Drug Use: denies illicit drug use Functional Ability ADLs Independent: dressing, eating, toileting, bathing. Ambulation: independent Exam & Diagnostic Data Last 24 Hrs of Vital Signs/I&O Vital Signs Date Time Temp Pulse Resp B/P B/P Pulse O2 O2 Flow FiO2 Mean Ox Delivery Rate 06/01 0843 94 Nasal 1.0L Cannula 06/01 0800 Room Air 06/01 0634 97.6 90 20 142/72 93 06/01 0000 Nasal 1.0L Cannula 05/31 2141 97.9 106 20 104/48 92 Nasal 1.0L Cannula 05/31 1610 94 Room Air 05/31 1600 95 Nasal 1.0L Cannula 05/31 1503 98.3 109 20 108/56 93 Intake & Output 06/01 1600 06/01 0800 06/01 0000 Intake Total 260 510 Output Total Balance 260 510 Intake, IV 20 30 Intake, Oral 240 480 Number 0 0 Bowel Movements Physical Exam Other Physical Findings: Generally - Awake, alert mild distress Head and neck - normocephalic, atraumatic, EOMI grossly intact Cardiovascular - S1, S2, no murmurs, rubs or gallops Lungs - bilateral wheezing Abdomen - Bowel sounds positive, soft, non-tender Extremities - without edema Last 48 Hrs of Labs/Anderson: Laboratory Tests 06/01/17 0810: Anion Gap 16, Estimated GFR > 60, BUN/Creatinine Ratio 27.1 H, CBC w Diff NO MAN DIFF REQ, RBC 3.84 L, MCV 83.6, MCH 27.1, MCHC 32.4 L, RDW 17.8 H, MPV 8.3, Gran % 92.2 H, Lymphocytes % 4.6 L, Monocytes % 3.2, Eosinophils % 0, Basophils % 0, Absolute Granulocytes 12.1 H, Absolute Lymphocytes 0.6 L, Absolute Monocytes 0.4, Absolute Eosinophils 0, Absolute Basophils 0 05/31/17 0800: Troponin I Cancelled 05/31/17 0705: Anion Gap 13, Estimated GFR > 60, BUN/Creatinine Ratio 20.0, Troponin I 0.09, CBC w Diff NO MAN DIFF REQ, RBC 3.64 L, MCV 83.4, MCH 27.4, MCHC 32.8 L, RDW 18.2 H, MPV 8.5, Gran % 89.7 H, Lymphocytes % 8.7 L, Monocytes % 1.5 L, Eosinophils % 0, Basophils % 0.1, Absolute Granulocytes 4.5, Absolute Lymphocytes 0.4 L, Absolute Monocytes 0.1, Absolute Eosinophils 0, Absolute Basophils 0 05/30/17 1600: Urine Color STRAW, Urine Clarity CLEAR, Urine pH 6.5, Ur Specific [place] 1.015, Urine Protein NEG, Urine Ketones NEG, Urine Nitrite NEG, Urine Bilirubin NEG, Urine Urobilinogen 0.2, Ur Leukocyte Esterase NEG, Ur Microscopic EXAM NOT REQUIRED, Urine Hemoglobin NEG, Urine Glucose NEG 05/30/17 1550: Virus Culture Pending 05/30/17 1500: Anion Gap 15, Estimated GFR > 60, BUN/Creatinine Ratio 12.5, Glucose 98, Calcium 9.8, Magnesium 1.9, Total Bilirubin 0.2, AST 24, ALT 26, Alkaline Phosphatase 82 , Troponin I < 0.01, Total Protein 6.8, Albumin 4.2, Globulin 2.6, Albumin/ Globulin Ratio 1.6, CBC w Diff NO MAN DIFF REQ, RBC 4.39, MCV 83.6, MCH 27.4, MCHC 32.8 L, RDW 17.8 H, MPV 8.3, Gran % 80.6 H, Lymphocytes % 5.7 L, Monocytes % 7.7, Eosinophils % 5.2 H, Basophils % 0.8, Absolute Granulocytes 7.2 H, Absolute Lymphocytes 0.5 L, Absolute Monocytes 0.7 H, Absolute Eosinophils 0.5, Absolute Basophils 0.1 05/30/17 1459: Magnesium Cancelled Microbiology 05/30 1550 NASOPHARYN: Influenza Virus A & B Rapid Smear - COMP Assessment/Plan Impression/Plan: Impression The patient is a 81-year-old woman with a past medical history significant for hypertension, asthma, COPD, and GERD. Recent hospitalization for exacerbation of ?reactive airways disease. Leukocytosis and Klebsiella. CXR without infiltrates. On singulair, Symbicort and spiriva. No PFTs on file. Worsened dyspnea, possible sick contacts. No n/v/d/c. no cp, no palpitations, no dowd. Did not get opportunity to get PFTs for baseline. Has been on steroids, overall improved, but still feeling poorly. symbicort with rinsing of the mouth spiriva once daily. singulair. Plan -cont solumedrol -trc/nebs -5 day zithromax course -cont home meds -add spiriva once daily DVT prophylaxis at all times Consult Acknowledgment - Thank you for your consult request.
[2017-06-01 14:37] VITALS: BP 104/72
--- NOTE | 2017-06-01 15:12 | RADIOLOGY REPORT ---
EXAMINATION: XR PORTABLE CHEST CLINICAL INFORMATION: Pneumonia for follow-up cough congestion. COMPARISON: Prior chest May 2017 TECHNIQUE: Portable frontal view of the chest was obtained. FINDINGS: No significant abnormality is noted involving the heart, lungs, mediastinum, bony thorax or soft tissues. Bilateral shoulder arthroplasties partially visualized unchanged IMPRESSION: No acute disease
[2017-06-01 23:06] VITALS: BP 139/80
[2017-06-02 07:19] VITALS: BP 127/90
--- NOTE | 2017-06-02 07:20 | PN- Housestaff ---
[place] 06/02/17 0720: Subjective Follow-up For: COPD Exacerbation due to bronchitis Sputum culture is positive with klebsiella and yeast. Subjective: No overnight events. Patient remained afebrile overnight. Seen and examined this morning. Patient denied any chest pain, nausea, vomiting, chills, fever, lightheadedness, abdominal pain and dysuria. Patient reported having cough and bringing scant amount of sputum. She has exertional dyspnea that's her baseline. Patient is on one L oxygen and maintaining saturation 93%. She was not using any oxygen at home. Review of Systems Constitutional: Reports: no symptoms. EENTM: Reports: no symptoms. Cardiovascular: Reports: no symptoms. Respiratory: Reports: cough, short of breath. Gastrointestinal: Reports: no symptoms. Genitourinary: Reports: no symptoms. Musculoskeletal: Reports: no symptoms. Neurological/Psychological: Reports: no symptoms. Objective Last 24 Hrs of Vital Signs/I&O Vital Signs Date Time Temp Pulse Resp B/P B/P Pulse O2 O2 Flow FiO2 Mean Ox Delivery Rate 06/02 0719 97.8 77 20 127/90 93 Nasal 1.0L Cannula 06/02 0000 Nasal 1.0L Cannula 06/01 2306 99.1 87 20 139/80 93 Nasal 1.0L Cannula 06/01 1845 92 Nasal 1.0L Cannula 06/01 1600 94 Nasal 1.0L Cannula 06/01 1437 98.3 81 20 104/72 93 Room Air 06/01 0843 94 Nasal 1.0L Cannula Intake & Output 06/02 1600 06/02 0800 06/02 0000 Intake Total 240 1270 Output Total 900 Balance 240 370 Intake, IV 270 Intake, Oral 240 1000 Number 0 Bowel Movements Output, Urine 900 Physical Exam General Appearance: Alert, Oriented X3, Cooperative Skin Temp/Moisture Exam: Warm/Dry Sepsis Skin Exam (color): Normal for Ethnicity HEENT: Atraumatic, PERRLA, EOMI Neck: Supple Cardiovascular: Normal S1, Normal S2 Lungs: wheezing b/l Abdomen: Soft, No Tenderness Neurological: Normal Speech, Strength at 5/5 X4 Ext, Normal Tone Extremities: No Edema Assessment/Plan Assessment: 81 YO F former smoker (quit 30 years back) with PMH of HTN, COPD not on home O2, pneumonia, B/L knee and shulder replacements came to ED with chief complaint of cough with sputum, weakness and shortness of breath on exertion since this afternoon. We will admit the patient on general medicine floor to treat her COPD exacerbation due to acute bronchitis. COPD exacerbation due to acute bronchitis: -We'll continue oxygen supplementation to maintain saturation above 90%. -TRC nebulization -IV azithromycin for 5 days. Day 3. -IV ceftriaxone to treat klebsiella. Day 1 -IV Solu-Medrol 40 mg every 8 hourly. -Sputum culture is growing gram-negative rods and yeast. -Chest physiotherapy -Incentive spirometer. -spiriva once daily inhaler was added. History of hyperlipidemia: We will continue pravastatin. History of CAD and hypertension: -We will continue Lasix. -We will continue aspirin. History of depression: -We will continue escitalopram. DVT prophylaxis: Mechanical and Lovenox CODE STATUS: Full code Problem List: 1. Bronchitis 2. COPD exacerbation Pain Ratin Pain Location: none Pain Goal: Remain pain free Pain Plan: pain pathway Tomorrow's Labs & Rationales: cbc/bep Minnie Rushing MD 06/02/17 1242: Attending MD Review Statement Attending Statement Attending MD Statement: examined this patient, discuss w/resident/PA/PROOFREADER, agreed w/resident/PA/PROOFREADER, reviewed EMR data (avail) Attending Assessment/Plan: 81F PMH asthma/COPD not on home O2, HTN, aortic stenosis, GERD, depression admitted with COPD exacerbation and acute bronchitis. Patient still feels short of breath. She has a persistent dry cough, and becomes short of breath when speaking or with exertion. She still has significant bilateral wheezing. At her baseline of 3L NC. She reports chest pain with cough. Sputum culture growing Klebsiella. 1. COPD Exacerbation 2. Acute bronchitis secondary to Klebsiella Plan - Continue on general medicine - Start Ceftriaxone - Start Robitussin with codeine q12h PRN - Taper Solumedrol - Nebulizer treatments - Continue Azithromycin - Home medications - DVT PPx
[2017-06-02 09:07] LABS: ABSOLUTE BASOPHIL COUNT 0 /CUMM (0.0-0.2); ABSOLUTE EOSINOPHIL COUNT 0 /CUMM (0.0-0.7); ABSOLUTE GRANULOCYTE CT 12.2 /CUMM (1.4-6.5); ABSOLUTE LYMPH COUNT 0.7 /CUMM (1.2-3.4); ABSOLUTE MONOCYTE COUNT 0.5 /CUMM (0.10-0.60); BASOPHIL % 0.1 % (0.0-2.0); EOSINOPHIL % 0 % (0-5); HEMATOCRIT 30.2 % (37-47); MEAN CORPUSCULAR HGB 27.2 PG (27.0-31.0); MEAN CORPUSCULAR HGB CONC 32.5 G/DL (33.0-37.0); MEAN CORPUSCULAR VOLUME 83.9 FL (81.0-99.0); MEAN PLATELET VOLUME 8.9 FL (7.4-10.4); PLATELET COUNT 437 /CUMM (130-400); RBC DISTRIBUTION WIDTH 18.2 % (11.5-14.5); WHITE BLOOD CELL COUNT 13.4 /CUMM (4.8-10.8)
[2017-06-02 10:31] LABS: GRANULOCYTE % 91.2 % (42.2-75.2)
--- NOTE | 2017-06-02 12:38 | PN- Pulmonary ---
Subjective HPI/Critical Care Issues: Patient seen and examined. She appears to be doing somewhat better but still significant shortness of breath. Objective Current Medications: Current Medications Sig/Alessandra Start time Last Medication Dose Route Stop Time Status Admin Acetaminophen 650 MG .STK-MED ONE 06/01 1825 DC PO 06/01 1826 Acetaminophen 650 MG Q8P PRN 05/31 0330 AC 06/01 PO 1826 Albuterol Sulfate 3 ML TID 05/30 2200 AC 06/02 INH 1120 Albuterol Sulfate 2 PUF Q4-6 PRN PRN 05/30 1830 AC 06/01 INH 0545 Aspirin Buffered 81 MG DAILY 05/31 1000 AC 06/02 PO 0842 Azithromycin 500 MG DAILY@1730 05/31 1730 AC 06/01 Dextrose/Water 250 ML IV 1726 Bisacodyl 5 MG DAILY 06/01 1034 AC 06/02 PO 0843 Budesonide/ 2 PUF BID 05/30 2200 AC 06/02 Formoterol Fumarate INH 0841 Ceftriaxone Sodium 1,000 MG DAILY 06/02 1000 AC 06/02 IV 1207 Enoxaparin Sodium 40 MG DAILY 05/31 1000 AC 06/02 SC 0841 Escitalopram Oxalate 10 MG AT BEDTIME 05/31 2200 AC 06/01 PO 2044 Furosemide 20 MG DAILY 05/31 1000 AC 06/02 PO 0842 Guaifenesin 10 ML ONCE ONE 06/02 0900 CAN PO 06/02 0901 Guaifenesin 600 MG Q12 05/31 0047 AC 06/02 PO 0842 Guaifenesin/Codeine 10 ML ONCE ONE 06/01 2330 DC 06/01 Phosphate PO 06/01 2331 2331 Guaifenesin/ 10 ML BID PRN 06/02 1015 AC 06/02 Dextromethorphan PO 1225 Methylprednisolone 40 MG Q8 06/02 1400 AC IV Methylprednisolone 40 MG Q6 05/31 1200 DC 06/02 IV 0632 Omeprazole 20 MG BID 05/31 1000 AC 06/02 PO 0842 Ondansetron HCl 4 MG ONCE ONE 06/01 2045 DC 06/01 PO 06/01 2045 204 Polyethylene Glycol 17 GM DAILY 06/01 1033 AC 06/02 PO 0842 Pravastatin Sodium 80 MG 1700 05/30 1915 AC 06/01 PO 1726 Tiotropium [place] 1 PUF DAILY 06/01 1314 AC 06/02 INH 0842 Vital Signs & I&O Last 24 Hrs of Vitals and I&O: Vital Signs Date Time Temp Pulse Resp B/P B/P Pulse O2 O2 Flow FiO2 Mean Ox Delivery Rate 06/02 1121 93 Nasal 1.0L Cannula 06/02 0719 97.8 77 20 127/90 93 Nasal 1.0L Cannula 06/02 0000 Nasal 1.0L Cannula 06/01 2306 99.1 87 20 139/80 93 Nasal 1.0L Cannula 06/01 1845 92 Nasal 1.0L Cannula 06/01 1600 94 Nasal 1.0L Cannula 06/01 1437 98.3 81 20 104/72 93 Room Air Intake & Output 06/02 1600 06/02 0800 06/02 0000 Intake Total 240 1270 Output Total 900 Balance 240 370 Intake, IV 270 Intake, Oral 240 1000 Number 0 Bowel Movements Output, Urine 900 Exam Other Physical Findings: Generally - Awake, alert mild distress Head and neck - normocephalic, atraumatic, EOMI grossly intact Cardiovascular - S1, S2, no murmurs, rubs or gallops Lungs - bilateral wheezing Abdomen - Bowel sounds positive, soft, non-tender Extremities - without edema Results Last 24 Hrs of Lab Results: Laboratory Tests 06/02/17 0730: CBC w Diff NO MAN DIFF REQ, RBC 3.60 L, MCV 83.9, MCH 27.2, MCHC 32.5 L, RDW 18.2 H, MPV 8.9, Gran % 91.2 H, Lymphocytes % 5.0 L, Monocytes % 3.7, Eosinophils % 0, Basophils % 0.1, Absolute Granulocytes 12.2 H, Absolute Lymphocytes 0.7 L, Absolute Monocytes 0.5, Absolute Eosinophils 0, Absolute Basophils 0 Impression/Plan Impression/Plan Impression/Plan: Impression 81F * asthma exacerbation Plan -cont solumedrol at the same dose for now -trc/nebs -5 day zithromax course -cont home meds -spiriva once daily DVT prophylaxis at all times
[2017-06-02 14:10] VITALS: BP 156/82
[2017-06-02 23:35] VITALS: BP 147/90
[2017-06-03 06:30] VITALS: BP 162/88
--- NOTE | 2017-06-03 07:44 | PN- Housestaff ---
[place] 06/03/17 0744: Subjective Follow-up For: COPD Exacerbation due to bronchitis Sputum culture is positive with klebsiella and yeast. Subjective: Patient remained afebrile overnight. Seen and examined this morning. Patient reported having bouts of cough and short of breath last night. She got the breathing treatments. Patient reported that her dry cough is worsening and during the episode of coughing she becomes short of breath. She is using 1 L of oxygen and maintaining saturation 91%. During the coughing episode patient also reported having chest pain probably muscular due to severe cough. Patient denied any palpitation, nausea, vomiting, abdominal pain, lightheadedness and dysuria. Review of Systems Constitutional: Reports: no symptoms. EENTM: Reports: no symptoms. Cardiovascular: Reports: see HPI. Respiratory: Reports: cough, wheezing. Gastrointestinal: Reports: no symptoms. Genitourinary: Reports: no symptoms. Musculoskeletal: Reports: see HPI. Neurological/Psychological: Reports: no symptoms. Objective Last 24 Hrs of Vital Signs/I&O Vital Signs Date Time Temp Pulse Resp B/P B/P Pulse O2 O2 Flow FiO2 Mean Ox Delivery Rate 06/03 0630 97.9 90 18 162/88 91 06/03 0101 93 Nasal 1.0L Cannula 06/03 0000 Nasal 1.0L Cannula 06/02 2335 99.3 86 18 147/90 93 Nasal 2.0L Cannula 06/02 2022 Nasal 1.0L Cannula 06/02 1410 98.8 87 18 156/82 91 06/02 1121 93 Nasal 1.0L Cannula Intake & Output 06/03 0800 06/03 0000 06/02 1600 Intake Total 240 480 850 Output Total Balance 240 480 850 Intake, IV 300 Intake, Oral 240 480 550 Physical Exam General Appearance: Alert, Oriented X3, Cooperative Skin Temp/Moisture Exam: Warm/Dry Sepsis Skin Exam (color): Normal for Ethnicity HEENT: Atraumatic, PERRLA, EOMI Neck: Supple Cardiovascular: Normal S1, Normal S2 Lungs: wheezing b/l Abdomen: Soft, No Tenderness Neurological: Normal Speech, Strength at 5/5 X4 Ext, Normal Tone Extremities: No Edema Assessment/Plan Assessment: 81 YO F former smoker (quit 30 years back) with PMH of HTN, COPD not on home O2, pneumonia, B/L knee and shulder replacements came to ED with chief complaint of cough with sputum, weakness and shortness of breath on exertion since this afternoon. We will admit the patient on general medicine floor to treat her COPD exacerbation due to acute bronchitis. COPD exacerbation due to acute bronchitis: -We'll continue oxygen supplementation to maintain saturation above 90%. -TRC nebulization -IV azithromycin for 5 days. Day 4. -IV ceftriaxone to treat klebsiella. Day 2 -IV Solu-Medrol 40 mg every 8 hourly. -Sputum culture is growing klebsiella and yeast. -Chest physiotherapy -Incentive spirometer. -spiriva once daily inhaler was added. History of hyperlipidemia: We will continue pravastatin. History of CAD and hypertension: -We will continue Lasix. -We will continue aspirin. History of depression: -We will continue escitalopram. DVT prophylaxis: Mechanical and Lovenox CODE STATUS: Full code Problem List: 1. Bronchitis 2. COPD exacerbation Pain Ratin Pain Location: none Pain Goal: Remain pain free Pain Plan: pain pathway Tomorrow's Labs & Rationales: cbc Сергей CARVER,Minnie 06/03/17 1217: Attending MD Review Statement Attending Statement Attending MD Statement: examined this patient, discuss w/resident/PA/BENCH CARPENTER, agreed w/resident/PA/BENCH CARPENTER, reviewed EMR data (avail) Attending Assessment/Plan: 81F PMH asthma/COPD not on home O2, HTN, aortic stenosis, GERD, depression admitted with COPD exacerbation and acute bronchitis. Patient still feels short of breath. She has a persistent dry cough, and becomes short of breath when speaking or with exertion. She still has significant bilateral wheezing. At her baseline of 3L NC. She reports chest pain with cough. Sputum culture growing Klebsiella. 1. COPD Exacerbation 2. Acute bronchitis secondary to Klebsiella Plan - Continue on general medicine - Continue Ceftriaxone and Azithromycin - Continue Robitussin with codeine q12h PRN - Continue current Solumedrol - Chest physiotherapy - Nebulizer treatments - Home medications - DVT PPx
[2017-06-03 08:09] LABS: ABSOLUTE BASOPHIL COUNT 0 /CUMM (0.0-0.2); ABSOLUTE EOSINOPHIL COUNT 0 /CUMM (0.0-0.7); ABSOLUTE GRANULOCYTE CT 8.8 /CUMM (1.4-6.5); ABSOLUTE LYMPH COUNT 0.7 /CUMM (1.2-3.4); ABSOLUTE MONOCYTE COUNT 0.3 /CUMM (0.10-0.60); BASOPHIL % 0.2 % (0.0-2.0); EOSINOPHIL % 0 % (0-5); HEMATOCRIT 31.3 % (37-47); MEAN CORPUSCULAR HGB 26.9 PG (27.0-31.0); MEAN CORPUSCULAR HGB CONC 32.1 G/DL (33.0-37.0); MEAN CORPUSCULAR VOLUME 83.7 FL (81.0-99.0); MEAN PLATELET VOLUME 8.9 FL (7.4-10.4); PLATELET COUNT 443 /CUMM (130-400); RED BLOOD CELL CT 3.74 /CUMM (4.20-5.40); WHITE BLOOD CELL COUNT 9.8 /CUMM (4.8-10.8)
[2017-06-03 08:48] LABS: GRANULOCYTE % 89.7 % (42.2-75.2)
--- NOTE | 2017-06-03 11:47 | PN- Pulmonary ---
Subjective HPI/Critical Care Issues: Patient seen and examined this morning. She had an episode of bronchospasm yesterday and overall is somewhat better but still with significant wheezing and shortness of breath. Objective Current Medications: Current Medications Sig/Alessandra Start time Last Medication Dose Route Stop Time Status Admin Acetaminophen 650 MG Q8P PRN 05/31 0330 AC 06/01 PO 1826 Albuterol Sulfate 3 ML BID 06/02 2200 AC 06/03 INH 1034 Albuterol Sulfate 3 ML TID 05/30 2200 DC 06/02 INH 1120 Albuterol Sulfate 2 PUF Q4-6 PRN PRN 05/30 1830 AC 06/03 INH 0038 Aspirin Buffered 81 MG DAILY 05/31 1000 AC 06/03 PO 1009 Azithromycin 500 MG DAILY@1730 05/31 1730 AC 06/02 Dextrose/Water 250 ML IV 1745 Bisacodyl 10 MG ONCE ONE 06/03 0815 DC MO 06/03 0816 Bisacodyl 5 MG DAILY 06/01 1034 AC 06/03 PO 1009 Budesonide/ 2 PUF BID 05/30 2200 AC 06/03 Formoterol Fumarate INH 1009 Ceftriaxone Sodium 1,000 MG DAILY 06/02 1000 AC 06/03 IV 1009 Enoxaparin Sodium 40 MG DAILY 05/31 1000 AC 06/03 SC 1009 Escitalopram Oxalate 10 MG AT BEDTIME 05/31 2200 AC 06/02 PO 2157 Furosemide 20 MG DAILY 05/31 1000 AC 06/03 PO 1009 Guaifenesin 600 MG Q12 05/31 0047 AC 06/03 PO 1009 Guaifenesin/Codeine 10 ML Q12P PRN 06/02 1530 AC 06/02 Phosphate PO 2243 Guaifenesin/ 10 ML BID PRN 06/02 1015 AC 06/02 Dextromethorphan PO 1225 Methylprednisolone 40 MG Q8 06/02 1400 AC 06/03 IV 0502 Omeprazole 20 MG BID 05/31 1000 AC 06/03 PO 1009 Patient Medication 1 ED ONE ONE 06/03 1030 DC Teaching ED 06/03 1031 Polyethylene Glycol 17 GM DAILY 06/01 1033 AC 06/03 PO 1009 Pravastatin Sodium 80 MG 1700 05/30 1915 AC 06/02 PO 1742 Tiotropium [place] 1 PUF DAILY 06/01 1314 AC 06/03 INH 1009 Vital Signs & I&O Last 24 Hrs of Vitals and I&O: Vital Signs Date Time Temp Pulse Resp B/P B/P Pulse O2 O2 Flow FiO2 Mean Ox Delivery Rate 06/03 1036 92 Nasal 1.0L Cannula 06/03 0630 97.9 90 18 162/88 91 06/03 0101 93 Nasal 1.0L Cannula 06/03 0000 Nasal 1.0L Cannula 06/02 2335 99.3 86 18 147/90 93 Nasal 2.0L Cannula 06/02 2021 Nasal 1.0L Cannula 06/02 1410 98.8 87 18 156/82 91 Intake & Output 06/03 1600 06/03 0800 06/03 0000 Intake Total 240 480 Output Total Balance 240 480 Intake, Oral 240 480 Exam Other Physical Findings: Generally - Awake, alert mild distress Head and neck - normocephalic, atraumatic, EOMI grossly intact Cardiovascular - S1, S2, no murmurs, rubs or gallops Lungs - bilateral wheezing Abdomen - Bowel sounds positive, soft, non-tender Extremities - without edema Results Last 24 Hrs of Lab Results: Laboratory Tests 06/03/17 0700: Anion Gap 14, Estimated GFR > 60, BUN/Creatinine Ratio 28.3 H, CBC w Diff NO MAN DIFF REQ, RBC 3.74 L, MCV 83.7, MCH 26.9 L, MCHC 32.1 L, RDW 18.0 H, MPV 8.9, Gran % 89.7 H, Lymphocytes % 7.1 L, Monocytes % 3.0, Eosinophils % 0, Basophils % 0.2, Absolute Granulocytes 8.8 H, Absolute Lymphocytes 0.7 L, Absolute Monocytes 0.3, Absolute Eosinophils 0, Absolute Basophils 0 Impression/Plan Impression/Plan Impression/Plan: Impression 81F * asthma exacerbation Plan -cont solumedrol at the same dose for now - no taper as of yet, slow progress, but hope to reduce dose within 24-48 hrs -trc/nebs -5 day zithromax course -cont home meds -spiriva once daily DVT prophylaxis at all times
--- NOTE | 2017-06-03 13:25 | Discharge Summary ---
Visit Information Visit Dates Admission Date: 05/30/17 Discharge Date: 06/11/17 Hospital Course Course Attending Physician: Minnie Rushing MD Primary Care Physician: Jacque CARVER,Jacque [facility] Course: 81 YO F former smoker (quit 30 years back) with PMH of HTN, COPD not on home O2, pneumonia, B/L knee and shulder replacements came to ED with chief complaint of cough with sputum, weakness and shortness of breath on exertion since this afternoon. ED course: Vitals: Temperature 100.8, pulse 105, respiratory rate 22, blood pressure 157/97 , oxygen saturation 92% on room air. Labs: WBC count 9.0, hemoglobin 12.0, hematocrit 36.7, platelet count 539, sodium 143, potassium 4.2, BUN 10, creatinine 0.8, anion gap 15, troponin less than 0.01, calcium 9.8, glucose 98, BUN 6 creatinine ratio 12.5, magnesium 1.9. Rapid flu test negative. COPD exacerbation due to acute bronchitis: Patient was admitted with COPD exacerbation due to acute bronchitis. Blood and urine cultures were obtained. Supplemental oxygen was given to keep the saturation above 92%. Pulmonology consult was obtained and recommendations were followed. Patient was started on IV Solu-Medrol that was changed to prednisone with tapering dose. Patient was given azithromycin after 3 days course patient was complaining of burning sensation in IV line that's why it was discontinued. Patient didn't complain of any allergies with azithromycin. Patient had difficulty in bringing up sputum so after the recommendations of pulmonology she was given Mucomyst nebulization. Patient's cough and wheezing took a longer time to improve. Patient sputum came back positive with Klebsiella and yeast. She was given ceftriaxone as she was treated with the same medication in the past. But after 5 days treatment sputum culture was repeated again and she was still growing klebsiella. At that time klebsiella was sensitive with Unasyn and she was given Unasyn for [address] scan chest was done to see if there is any pneumonia but that was negative. Initially on admission rapid flu test was negative but after 10 days patient PCR came back positive with flu and she was started on Tamiflu for 5 days. Patient was discharged on tapering prednisone dose and Tamiflu to complete 5 days course. Patient was instructed to follow pulmonology as outpatient. Influenza infection: Initially her rapid flu test was negative but later on her influenza virus PCR came back positive and she was started on Tamiflu for 5 days. History of hyperlipidemia: We continued pravastatin. History of CAD and hypertension: With continued Lasix and aspirin. Patient blood pressure was labile. Her primary care physician and assessment services manager recently discontinued her lisinopril and metoprolol. During the hospital stay twice patient's blood pressure went up to 180/100 and 188/110. At that time patient was given 10 mg lisinopril and her blood pressure came back normal. Usually her blood pressure remained in the lower normal range (low 100s systolic blood pressure). Patient was instructed to keep a record of her blood pressure before she goes to primary care physician so that physician can decide if she needs medication or not. History of depression: We continued escitalopram. DVT prophylaxis: Mechanical and Lovenox CODE STATUS: Full code Allergies: Coded Allergies: No Known Allergies (03/16/17) Pertinent Lab Results: Chest x-ray on 05/30/2017: IMPRESSION: Evidence of underlying chronic obstructive pulmonary disease/emphysema. No superimposed pneumonia. No interval change. Chest x-ray on 06/01/2017: IMPRESSION: No acute disease Chest CT scan on 06/09/17: IMPRESSION: 1. No evidence of acute pneumonia, pleural effusion or lymphadenopathy. 2. Severe pulmonary emphysema. 3. Small, stable calcified and noncalcified pulmonary nodules. No interval development of a suspicious nodule or mass. 4. Atherosclerotic disease of coronary arteries and thoracic aorta without aortic aneurysm. 5. Moderate-sized hiatal hernia. Disposition Summary Disposition Principal Diagnosis: COPD exacerbation due to acute bronchitis Sputum culture positive with Klebsiella and yeast. Influenza infection. Additional Diagnosis: Hyperlipidemia CAD and hypertension Depression Discharge Disposition: home or self care Discharge Instructions General Discharge Information Code Status: Full Code Patient's Diet: Regular diet Patient's Activity: Self limited Follow-Up Instructions/Appts: Follow up with your pcp in one week. Follow up with registration representative in one week. Medications at Discharge Discharge Medications: Stop taking the following medications: Montelukast Sodium (Singulair) 10 MG TABLET ORAL DAILY Qty = 30 Metoprolol Tartrate (Metoprolol Tartrate) 25 MG TABLET ORAL TWICE DAILY Qty = 60 Lisinopril (Lisinopril) 10 MG TABLET ORAL DAILY Qty = 30 Clopidogrel Bisulfate (Plavix) 75 MG TABLET ORAL DAILY Qty = 30 Continue taking these medications: Pravastatin Sodium (Pravastatin Sodium) 80 MG TABLET 1 Tablet ORAL DAILY Comments: Last Taken: 06/10/17 Time: 1720PM Escitalopram Oxalate (Escitalopram Oxalate) 10 MG TABLET 1 Tablet ORAL DAILY Comments: Last Taken: 06/10/17 Time: 2120PM Omeprazole (Omeprazole) 20 MG TABLET.DR Son Tablet ORAL TWICE DAILY Comments: Last Taken: 06/11/17 Time: 10AM Aspirin (Ecotrin*) 81 MG TABLET. 1 Tablet ORAL DAILY Comments: Last Taken: 06/11/17 Time: 10AM Budesonide/Formoterol Fumarate (Symbicort 160-4.5 Mcg Inhaler) 160 MCG-4.5 MCG/ ACTUATION HFA.AER.AD 2 Puff Inhale through mouth TWICE DAILY Comments: Last Taken: 06/11/17 Time: 10AM Albuterol Sulfate (Proair Hfa) 90 MCG HFA.AER.AD 2 Puff Inhale through mouth EVERY 4-6 HOURS NEEDED as needed for asthma Comments: NOT GIVEN IN HOSPITAL Albuterol Sulfate (Albuterol Sulfate) 2.5 MG/3 ML (0.083 %) VIAL.NEB 1 Vial Inhale Solution Q6H as needed for WHEEZING Comments: Last Taken: 06/11/17 Time: 0906AM Calcium Carbonate/Vitamin D3 (Calcium 500 + D Tablet) (Unknown Strength) TABLET Unknown Dose ORAL Every Morning Comments: NOT GIVEN IN HOSPITAL Tiotropium [place] (Spiriva) 18 MCG CAP.W.DEV 1 Capsule Inhale through mouth DAILY Qty = 30 Comments: Last Taken: 06/11/17 Time: 10AM Furosemide (Lasix) 20 MG TABLET 1 Tablet ORAL DAILY Comments: Last Taken: 06/11/17 Time: 10AM Start taking the following new medications: Prednisone (Prednisone) 10 MG TABLET 0 ORAL DAILY Qty = 45 No Refills Instructions: On Take 06/12-06/14 50 MG 06/15-06/17 40 MG 06/18-06/20 30 MG 06/21-06/23 20 MG 06/24-06/26 10 MG Then Stop Comments: Last Taken: 06/11/17 Time: 10AM Oseltamivir Phosphate (Tamiflu) 75 MG CAPSULE 1 Tablet ORAL TWICE DAILY Qty = 7 No Refills Comments: Last Taken: 06/11/17 Time: 10AM Copies To: Jacque CARVER,Jacque; Matteo Blair MD
--- NOTE | 2017-06-03 14:00 | Patient Discharge Instructions ---
Discharge Instructions General Discharge Information You were seen/treated for: COPD exacerbation due to acute bronchitis Sputum growing klebsiella and yeast. Flu positive Watch for these problems: Cough with sputum, shortness of breath, wheezing, chest pain, lightheadedness and fever with chills. If you experience any of these symptoms please come to ED or call your primary care physician. Special Instructions: Follow up with your primary care physician in one week. Follow-up with your fisher gill net in 1 week. Diet Recommended Diet: Regular Activity Activity Self Limited: Yes Acute Coronary Syndrome Inclusion Criteria At DC or during hospital stay patient has or had the following: ACS DIAGNOSIS No Discharge Core Measures Meds if any: Prescribed or Continued at Discharge Meds if any: NOT Prescribed or Continued at Discharge Congestive Heart Failure Inclusion Criteria At DC or during hospital stay patient has or had the following: CHF DIAGNOSIS No Discharge Core Measures Meds if any: Prescribed or Continued at Discharge Meds if any: NOT Prescribed or Continued at Discharge Cerebrovascular accident Inclusion Criteria At DC or during hospital stay patient has or had the following: CVA/TIA Diagnosis No Discharge Core Measures Meds if any: Prescribed or Continued at Discharge Meds if any: NOT Prescribed or Continued at Discharge Venous thromboembolism Inclusion Criteria VTE Diagnosis No VTE Type NONE VTE Confirmed by (Test) NONE Discharge Core Measures - Per Current guidelines, there needs to be overlap - treatment for the first 5 days of Warfarin therapy. - If discharged on Warfarin prior to 5 days of - overlap therapy, the patient will need to be - assessed for post discharge needs including - *Post discharge parental anticoagulation - *Warfarin and/or parental anticoagulation education - *Follow up date to check INR post discharge At least 5 days overlap therapy as Inpatient No Meds if any: Prescribed or Continued at Discharge Note: Overlap Therapy is Warfarin and Anticoagulant Meds if any: NOT Prescribed or Continued at Discharge
[2017-06-03 14:04] VITALS: BP 178/80
[2017-06-03 16:42] VITALS: BP 188/110
[2017-06-03 18:53] VITALS: BP 132/94
[2017-06-03 23:39] VITALS: BP 140/86
[2017-06-04 05:20] VITALS: BP 158/86
--- NOTE | 2017-06-04 07:51 | PN- Housestaff ---
[facility] Subjective Follow-up For: COPD Exacerbation due to bronchitis Sputum culture is positive with klebsiella and yeast. Subjective: No overnight events. Patient remained afebrileand examined this morning. Her blood pressure was on higher side yesterday and one dose of lisinopril was given. Patient is using 1 L of oxygen and maintaining saturation 94%. Patient reported having cough but not able to bring any phlegm. Patient also reported having shortness of breath while having bouts of cough. Patient denied any chest pain, nausea, vomiting, chills, fever, abdominal pain, dysuria. Review of Systems Constitutional: Reports: no symptoms. EENTM: Reports: no symptoms. Cardiovascular: Reports: no symptoms. Respiratory: Reports: cough, short of breath. Gastrointestinal: Reports: no symptoms. Genitourinary: Reports: no symptoms. Neurological/Psychological: Reports: no symptoms. Objective Last 24 Hrs of Vital Signs/I&O Vital Signs Date Time Temp Pulse Resp B/P B/P Pulse O2 O2 Flow FiO2 Mean Ox Delivery Rate 06/04 0915 94 Nasal 1.0L Cannula 06/04 0520 97.5 77 24 158/86 94 Nasal 1.0L Cannula 06/04 0000 92 Nasal 1.0L Cannula 06/03 2339 98.5 82 20 140/86 93 Nasal 1.0L Cannula 06/03 1855 92 Nasal 1.0L Cannula 06/03 1853 132/94 06/03 1742 85 188/110 06/03 1642 188/110 06/03 1600 Nasal 1.0L Cannula 06/03 1404 97.8 85 20 178/80 94 Nasal 2.0L Cannula Intake & Output 06/04 1600 06/04 0800 06/04 0000 Intake Total 240 Output Total Balance 240 Intake, Oral 240 Physical Exam General Appearance: Alert, Oriented X3, Cooperative Skin Temp/Moisture Exam: Warm/Dry Sepsis Skin Exam (color): Normal for Ethnicity HEENT: Atraumatic, PERRLA, EOMI Neck: Supple Cardiovascular: Normal S1, Normal S2 Lungs: b/l wheezing Abdomen: Soft, No Tenderness Neurological: Normal Speech, Strength at 5/5 X4 Ext, Normal Tone Extremities: No Edema Assessment/Plan Assessment: 81 YO F former smoker (quit 30 years back) with PMH of HTN, COPD not on home O2, pneumonia, B/L knee and shulder replacements came to ED with chief complaint of cough with sputum, weakness and shortness of breath on exertion since this afternoon. We will admit the patient on general medicine floor to treat her COPD exacerbation due to acute bronchitis. COPD exacerbation due to acute bronchitis: -We'll continue oxygen supplementation to maintain saturation above 90%. -TRC nebulization -IV azithromycin for 5 days. Day 5. -IV ceftriaxone to treat klebsiella. Day 3 -IV Solu-Medrol 40 mg every 8 hourly. -Sputum culture is growing klebsiella and yeast. -Chest physiotherapy -Incentive spirometer. -spiriva once daily inhaler was added. -we will start mucomyst bid for helping her to bring up phlegm. History of hyperlipidemia: We will continue pravastatin. History of CAD and hypertension: -We will continue Lasix. -We will continue aspirin. History of depression: -We will continue escitalopram. DVT prophylaxis: Mechanical and Lovenox CODE STATUS: Full code Problem List: 1. Bronchitis 2. COPD exacerbation Pain Ratin Pain Location: none Pain Goal: Remain pain free Pain Plan: pain pathway Tomorrow's Labs & Rationales: cbc/bep Minnie Rushing MD 06/04/17 1342: Attending MD Review Statement Attending Statement Attending MD Statement: examined this patient, discuss w/resident/PA/[employer], agreed w/resident/PA/[employer], reviewed EMR data (avail) Attending Assessment/Plan: 81F PMH asthma/COPD not on home O2, HTN, aortic stenosis, GERD, depression admitted with COPD exacerbation and acute bronchitis. Patient still feels short of breath. She has a persistent dry cough, and becomes short of breath when speaking or with exertion. She still has significant bilateral wheezing. At her baseline of 3L NC. She reports chest pain with cough. Sputum culture growing Klebsiella. 1. COPD Exacerbation 2. Acute bronchitis secondary to Klebsiella Plan - Continue on general medicine - Continue Ceftriaxone and Azithromycin - Continue Robitussin with codeine q12h PRN - Continue current Solumedrol - Chest physiotherapy - Nebulizer treatments - Home medications - DVT PPx
[2017-06-04 08:45] LABS: ABSOLUTE BASOPHIL COUNT 0 /CUMM (0.0-0.2); ABSOLUTE EOSINOPHIL COUNT 0 /CUMM (0.0-0.7); ABSOLUTE GRANULOCYTE CT 7.5 /CUMM (1.4-6.5); ABSOLUTE LYMPH COUNT 0.7 /CUMM (1.2-3.4); ABSOLUTE MONOCYTE COUNT 0.5 /CUMM (0.10-0.60); BASOPHIL % 0.1 % (0.0-2.0); EOSINOPHIL % 0 % (0-5); HEMATOCRIT 31.9 % (37-47); MEAN CORPUSCULAR HGB 26.8 PG (27.0-31.0); MEAN CORPUSCULAR HGB CONC 32.3 G/DL (33.0-37.0); MEAN CORPUSCULAR VOLUME 82.9 FL (81.0-99.0); MEAN PLATELET VOLUME 9.1 FL (7.4-10.4); PLATELET COUNT 455 /CUMM (130-400); RBC DISTRIBUTION WIDTH 17.6 % (11.5-14.5); RED BLOOD CELL CT 3.85 /CUMM (4.20-5.40); WHITE BLOOD CELL COUNT 8.7 /CUMM (4.8-10.8)
[2017-06-04 09:55] LABS: GRANULOCYTE % 86.1 % (42.2-75.2)
--- NOTE | 2017-06-04 10:30 | PN- Pulmonary ---
Subjective HPI/Critical Care Issues: pt seen and examined still with cough and phlegm Objective Current Medications: Current Medications Sig/Alessandra Start time Last Medication Dose Route Stop Time Status Admin Acetaminophen 650 MG Q8P PRN 05/31 0330 AC 06/01 PO 1826 Acetylcysteine 4 ML BID 06/04 2200 DC INH Acetylcysteine 4 ML BID 06/04 1100 AC INH Acetylcysteine 2 ML BID 06/04 1021 DC INH Albuterol Sulfate 3 ML BID 06/02 2200 AC 06/04 INH 0910 Albuterol Sulfate 2 PUF Q4-6 PRN PRN 05/30 1830 AC 06/03 INH 1223 Aspirin Buffered 81 MG DAILY 05/31 1000 AC 06/04 PO 0945 Azithromycin 500 MG DAILY@1730 05/31 1730 AC 06/02 Dextrose/Water 250 ML IV 1745 Bisacodyl 5 MG DAILY 06/01 1034 AC 06/04 PO 0946 Budesonide/ 2 PUF BID 05/30 2200 AC 06/04 Formoterol Fumarate INH 0945 Ceftriaxone Sodium 1,000 MG DAILY 06/02 1000 AC 06/04 IV 0945 Enoxaparin Sodium 40 MG DAILY 05/31 1000 AC 06/04 SC 0945 Escitalopram Oxalate 10 MG AT BEDTIME 05/31 2200 AC 06/03 PO 2127 Furosemide 20 MG DAILY 05/31 1000 AC 06/04 PO 0945 Guaifenesin 600 MG Q12 05/31 0047 AC 06/04 PO 0945 Guaifenesin/Codeine 10 ML Q12P PRN 06/02 1530 AC 06/03 Phosphate PO 2242 Guaifenesin/ 10 ML BID PRN 06/02 1015 AC 06/02 Dextromethorphan PO 1225 Lisinopril 10 MG ONCE ONE 06/03 1700 DC 06/03 PO 06/03 1701 1742 Methylprednisolone 40 MG Q8 06/02 1400 AC 06/04 IV 0501 Omeprazole 20 MG BID 05/31 1000 AC 06/04 PO 0945 Patient Medication 1 ED ONE ONE 06/03 1030 DC 06/03 Teaching ED 06/03 1031 1348 Polyethylene Glycol 17 GM DAILY 06/01 1033 AC 06/04 PO 0945 Pravastatin Sodium 80 MG 1700 05/30 1915 AC 06/03 PO 1742 Tiotropium [place] 1 PUF DAILY 06/01 1314 AC 06/04 INH 0945 Vital Signs & I&O Last 24 Hrs of Vitals and I&O: Vital Signs Date Time Temp Pulse Resp B/P B/P Pulse O2 O2 Flow FiO2 Mean Ox Delivery Rate 06/04 0915 94 Nasal 1.0L Cannula 06/04 0520 97.5 77 24 158/86 94 Nasal 1.0L Cannula 06/04 0000 92 Nasal 1.0L Cannula 06/03 2339 98.5 82 20 140/86 93 Nasal 1.0L Cannula 06/03 1855 92 Nasal 1.0L Cannula 06/03 1853 132/94 06/03 1742 85 188/110 06/03 1642 188/110 06/03 1600 Nasal 1.0L Cannula 06/03 1404 97.8 85 20 178/80 94 Nasal 2.0L Cannula 06/03 1036 92 Nasal 1.0L Cannula Intake & Output 06/04 1600 06/04 0800 06/04 0000 Intake Total 240 Output Total Balance 240 Intake, Oral 240 Exam Other Physical Findings: Generally - Awake, alert mild distress Head and neck - normocephalic, atraumatic, EOMI grossly intact Cardiovascular - S1, S2, no murmurs, rubs or gallops Lungs - bilateral wheezing Abdomen - Bowel sounds positive, soft, non-tender Extremities - without edema Results Last 24 Hrs of Lab Results: Laboratory Tests 06/04/17 0649: CBC w Diff NO MAN DIFF REQ, RBC 3.85 L, MCV 82.9, MCH 26.8 L, MCHC 32.3 L, RDW 17.6 H, MPV 9.1, Gran % 86.1 H, Lymphocytes % 8.3 L, Monocytes % 5.5, Eosinophils % 0, Basophils % 0.1, Absolute Granulocytes 7.5 H, Absolute Lymphocytes 0.7 L, Absolute Monocytes 0.5, Absolute Eosinophils 0, Absolute Basophils 0 Impression/Plan Impression/Plan Impression/Plan: Impression 81F * asthma exacerbation Plan -add mucomyst nebulized bid -cont solumedrol at the same dose for now - no taper as of yet, slow progress, but hope to reduce dose within 24-48 hrs -trc/nebs -5 day zithromax course -cont home meds -spiriva once daily DVT prophylaxis at all times
[2017-06-04 14:11] VITALS: BP 180/100
[2017-06-04 14:17] VITALS: BP 150/80
[2017-06-04 22:28] VITALS: BP 142/82
[2017-06-05 05:51] VITALS: BP 138/98
--- NOTE | 2017-06-05 07:42 | PN- Housestaff ---
[facility] 06[facility] 0742: Subjective Follow-up For: COPD Exacerbation due to bronchitis Sputum culture is positive with klebsiella and yeast. Subjective: No overnight events. Patient remained afebrile overnight. Seen and examined this morning. She denied any chest pain, palpitation, vomiting, nausea, abdominal pain, lightheadedness and dysuria. Patient reported having intermittent cough and still not able to bring any phlegm. Patient become short of breath during coughing episodes. Patient is on 1 L of oxygen and maintaining saturation 93%. We will check her sats while ambulation today. Review of Systems Constitutional: Reports: no symptoms. EENTM: Reports: no symptoms. Cardiovascular: Reports: no symptoms. Respiratory: Reports: cough, short of breath. Gastrointestinal: Reports: no symptoms. Genitourinary: Reports: no symptoms. Musculoskeletal: Reports: no symptoms. Neurological/Psychological: Reports: no symptoms. Objective Last 24 Hrs of Vital Signs/I&O Vital Signs Date Time Temp Pulse Resp B/P B/P Pulse O2 O2 Flow FiO2 Mean Ox Delivery Rate 06/05 0551 97.5 82 24 138/98 94 Nasal 1.0L Cannula 06/05 0000 Nasal 1.0L Cannula 06/04 2228 97.5 92 20 142/82 93 Room Air 06/04 1600 94 Nasal 1.5L Cannula 06/04 1600 94 Nasal 1.0L Cannula 06/04 1417 150/80 06/04 1411 98.0 69 19 180/100 100 Nasal 1.0L Cannula Intake & Output 06/05 1600 06/05 0800 06/05 0000 Intake Total 480 1030 Output Total 900 Balance 480 130 Intake, IV 30 Intake, Oral 480 1000 Number 0 Bowel Movements Output, Urine 900 Patient 155 lb Weight Physical Exam General Appearance: Alert, Oriented X3, Cooperative Skin Temp/Moisture Exam: Warm/Dry Sepsis Skin Exam (color): Normal for Ethnicity HEENT: Atraumatic, PERRLA, EOMI Neck: Supple Cardiovascular: Normal S1, Normal S2 Lungs: wheezing b/l Abdomen: Soft, No Tenderness Neurological: Normal Speech, Strength at 5/5 X4 Ext, Normal Tone Extremities: No Edema Assessment/Plan Assessment: 81 YO F former smoker (quit 30 years back) with PMH of HTN, COPD not on home O2, pneumonia, B/L knee and shulder replacements came to ED with chief complaint of cough with sputum, weakness and shortness of breath on exertion since this afternoon. We will admit the patient on general medicine floor to treat her COPD exacerbation due to acute bronchitis. COPD exacerbation due to acute bronchitis: -We'll continue oxygen supplementation to maintain saturation above 90%. -TRC nebulization -IV azithromycin discontinued today. -IV ceftriaxone to treat klebsiella. Day 4 -IV Solu-Medrol 40 mg every 8 hourly. -Sputum culture is growing klebsiella and yeast. -Chest physiotherapy -Incentive spirometer. -spiriva once daily inhaler was added. -we will start mucomyst bid for helping her to bring up phlegm. History of hyperlipidemia: We will continue pravastatin. History of CAD and hypertension: -We will continue Lasix. -We will continue aspirin. History of depression: -We will continue escitalopram. DVT prophylaxis: Mechanical and Lovenox CODE STATUS: Full code Problem List: 1. COPD exacerbation 2. Bronchitis Pain Ratin Pain Location: none Pain Goal: Remain pain free Pain Plan: pain pathway Tomorrow's Labs & Rationales: none Minnie Rushing MD 06/05/17 1313: Attending MD Review Statement Attending Statement Attending MD Statement: examined this patient, discuss w/resident/PA/END FRAZER, agreed w/resident/PA/END FRAZER, reviewed EMR data (avail) Attending Assessment/Plan: 81F PMH asthma/COPD not on home O2, HTN, aortic stenosis, GERD, depression admitted with COPD exacerbation and acute bronchitis. Patient still feels short of breath. She has a persistent dry cough, and becomes short of breath when speaking or with exertion. She still has significant bilateral wheezing. At her baseline of 3L NC. She reports chest pain with cough. Sputum culture growing Klebsiella. 1. COPD Exacerbation 2. Acute bronchitis secondary to Klebsiella Plan - Continue on general medicine - Continue Ceftriaxone - Continue Robitussin with codeine q12h PRN - Continue current Solumedrol, taper tomorrow to q12h if improving - Chest physiotherapy - Nebulizer treatments - Home medications - DVT PPx
--- NOTE | 2017-06-05 11:00 | PN- Pulmonary ---
Subjective HPI/Critical Care Issues: Patient seen and examined. She is coughing in the Mucomyst is bringing up. Objective Current Medications: Current Medications Sig/Alessandra Start time Last Medication Dose Route Stop Time Status Admin Acetaminophen 650 MG Q8P PRN 05/31 0330 AC 06/01 PO 1826 Acetylcysteine 4 ML BID 06/04 2200 DC INH Acetylcysteine 4 ML BID 06/04 1100 AC 06/05 INH 0921 Albuterol Sulfate 3 ML TID 06/04 2200 AC 06/05 INH 0921 Albuterol Sulfate 3 ML BID 06/02 2200 DC 06/04 INH 0910 Albuterol Sulfate 2 PUF Q4-6 PRN PRN 05/30 1830 AC 06/05 INH 0216 Aspirin Buffered 81 MG DAILY 05/31 1000 AC 06/05 PO 1035 Azithromycin 500 MG DAILY@1730 05/31 1730 DC 06/02 Dextrose/Water 250 ML IV 1745 Bisacodyl 5 MG DAILY 06/01 1034 AC 06/05 PO 1035 Budesonide/ 2 PUF BID 05/30 2200 AC 06/05 Formoterol Fumarate INH 1036 Ceftriaxone Sodium 1,000 MG DAILY 06/02 1000 AC 06/05 IV 1036 Enoxaparin Sodium 40 MG DAILY 05/31 1000 AC 06/05 SC 1035 Escitalopram Oxalate 10 MG AT BEDTIME 05/31 2200 AC 06/04 PO 2245 Furosemide 20 MG DAILY 05/31 1000 AC 06/05 PO 1035 Guaifenesin 10 ML .STK-MED ONE 06/04 1649 DC PO 06/04 1650 Guaifenesin 600 MG Q12 05/31 0047 AC 06/05 PO 1035 Guaifenesin/Codeine 10 ML Q12P PRN 06/02 1530 AC 06/04 Phosphate PO 2252 Guaifenesin/ 10 ML BID PRN 06/02 1015 AC 06/04 Dextromethorphan PO 1649 Methylprednisolone 40 MG Q8 06/02 1400 AC 06/05 IV 0537 Omeprazole 20 MG BID 05/31 1000 AC 06/05 PO 1034 Polyethylene Glycol 17 GM DAILY 06/01 1033 AC 06/04 PO 0945 Pravastatin Sodium 80 MG 1700 05/30 1915 AC 06/04 PO 1717 Tiotropium [place] 1 PUF DAILY 06/01 1314 AC 06/05 INH 1036 Vital Signs & I&O Last 24 Hrs of Vitals and I&O: Vital Signs Date Time Temp Pulse Resp B/P B/P Pulse O2 O2 Flow FiO2 Mean Ox Delivery Rate 06/05 0551 97.5 82 24 138/98 94 Nasal 1.0L Cannula 06/05 0000 Nasal 1.0L Cannula 06/04 2228 97.5 92 20 142/82 93 Room Air 06/04 1600 94 Nasal 1.5L Cannula 06/04 1600 94 Nasal 1.0L Cannula 06/04 1417 150/80 06/04 1411 98.0 69 19 180/100 100 Nasal 1.0L Cannula Intake & Output 06/05 1600 06/05 0800 06/05 0000 Intake Total 480 1030 Output Total 900 Balance 480 130 Intake, IV 30 Intake, Oral 480 1000 Number 0 Bowel Movements Output, Urine 900 Patient 155 lb Weight Exam Other Physical Findings: Generally - Awake Head and neck - normocephalic, atraumatic, EOMI grossly intact Cardiovascular - S1, S2, no murmurs, rubs or gallops Lungs - bilateral wheezing Abdomen - Bowel sounds positive, soft, non-tender Extremities - without edema Impression/Plan Impression/Plan Impression/Plan: Impression 81F * asthma exacerbation Plan -continue mucomyst nebulized bid -send sputum cx -keep solumedrol -trc/nebs -5 day zithromax course -cont home meds -spiriva once daily DVT prophylaxis at all times
[2017-06-05 15:38] VITALS: BP 142/80
[2017-06-05] MEDS ORDERED: AUGMENTIN 875-1 EACH PO (17:21)
[2017-06-05] MEDS ORDERED: PREDNISONE10 M2 PO (17:21)
[2017-06-05 22:40] VITALS: BP 110/80
[2017-06-06 06:49] VITALS: BP 148/82
--- NOTE | 2017-06-06 10:15 | Discharge Summary ---
Hospital Course Allergies: Coded Allergies: No Known Allergies (03/16/17) Discharge Instructions General Discharge Information Code Status: Full Code Medications at Discharge Discharge Medications: Stop taking the following medications: Montelukast Sodium (Singulair) 10 MG TABLET ORAL DAILY Qty = 30 Metoprolol Tartrate (Metoprolol Tartrate) 25 MG TABLET ORAL TWICE DAILY Qty = 60 Lisinopril (Lisinopril) 10 MG TABLET ORAL DAILY Qty = 30 Clopidogrel Bisulfate (Plavix) 75 MG TABLET ORAL DAILY Qty = 30 Continue taking these medications: Pravastatin Sodium (Pravastatin Sodium) 80 MG TABLET 1 Tablet ORAL DAILY Comments: Last Taken:04/25/17 Time:1700 Escitalopram Oxalate (Escitalopram Oxalate) 10 MG TABLET 1 Tablet ORAL DAILY Instructions: LAST GIVEN 03/17/17 @ 0949 Comments: Last Taken: 04/26/17 Time: 9:45 AM Omeprazole (Omeprazole) 20 MG TABLET.DR 1 Tablet ORAL TWICE DAILY Comments: Last Taken: 04/26/17 Time: 6:30 AM Aspirin (Ecotrin*) 81 MG TABLET.DR 1 Tablet ORAL DAILY Instructions: LAST TAKEN 03/17/17 @ 0949 Comments: Last Taken: 04/26/17 Time: 9:45 AM Budesonide/Formoterol Fumarate (Symbicort 160-4.5 Mcg Inhaler) 160 MCG-4.5 MCG/ ACTUATION HFA.AER.AD 2 Puff Inhale through mouth TWICE DAILY Instructions: LAST GIVEN 03/17/17 @ 0949 Comments: Last Taken: 04/26/17 Time: 9:45 AM Albuterol Sulfate (Proair Hfa) 90 MCG HFA.AER.AD 2 Puff Inhale through mouth EVERY 4-6 HOURS NEEDED as needed for asthma Comments: NOT GIVEN WHILE IN HOSPITAL Albuterol Sulfate (Albuterol Sulfate) 2.5 MG/3 ML (0.083 %) VIAL.NEB 1 Vial Inhale Solution Q6H as needed for WHEEZING Calcium Carbonate/Vitamin D3 (Calcium 500 + D Tablet) (Unknown Strength) TABLET Unknown Dose ORAL Every Morning Comments: Last Taken:04/26/17 Time:1000 Tiotropium [place] (Spiriva) 18 MCG CAP.W.DEV 1 Capsule Inhale through mouth DAILY Qty = 30 Furosemide (Lasix) 20 MG TABLET 1 Tablet ORAL DAILY Start taking the following new medications: Amoxicillin/Potassium Clav (Augmentin 875-125 Tablet) 875 MG-125 MG TABLET 1 Tablet ORAL TWICE DAILY Qty = 8 No Refills Prednisone (Prednisone) 10 MG TABLET 0 ORAL DAILY Qty = 63 No Refills Instructions: On Take 06/06-06/08 60 MG 06/09-06/11 50 MG 06/12-06/14 40 MG 06/15-06/17 30 MG 06/18-06/20 20 MG 06/21-06/23 10 MG Then Stop
--- NOTE | 2017-06-06 12:32 | PN- Housestaff ---
Bro King 06/06/17 1231: Subjective Follow-up For: asthma vs COPD exacerbation Subjective: Pt seen and examined at the bedside. She remains on solumedrol 40 q8h and states she is slighly improved overall. She had an uneventful night. Review of Systems Constitutional: Reports: see HPI. Objective Last 24 Hrs of Vital Signs/I&O Vital Signs Date Time Temp Pulse Resp B/P B/P Pulse O2 O2 Flow FiO2 Mean Ox Delivery Rate 06/06 2044 95 Nasal 1.5L Cannula 06/06 1443 97.5 78 20 120/60 93 Nasal Cannula 06/06 0920 94 Nasal 1.0L Cannula 06/06 0800 96 Nasal 1.0L Cannula 06/06 0649 97.9 80 20 148/82 95 06/06 0000 92 Nasal 1.0L Cannula 06/05 2240 98.7 83 20 110/80 91 Nasal 1.0L Cannula Intake & Output 06/06 1600 06/06 0800 02 0000 Intake Total 720 240 Output Total Balance 720 240 Intake, Oral 720 240 Physical Exam General Appearance: Alert, Oriented X3, Cooperative, No Acute Distress HEENT: Atraumatic, PERRLA Cardiovascular: Regular Rate, Normal S1, Normal S2 Lungs: persistent BL wheezing Abdomen: Normal Bowel Sounds, Soft, No Tenderness Extremities: No Tenderness/Swelling Assessment/Plan Assessment: Ms. Vivas is a 81 YO F w PMH of HTN, COPD not on home O2, pneumonia, B/L knee and shoulder replacements who presented to the ED with complaints of productive cough and dyspnea. Problem List/Assessment and plan Asthma vs COPD exacerbation 2/2 bronchitis * pulm consult appreciated. * continue IV steroids, and ABx * Plan to taper to PO in the am * Continue Robitussin with codeine q12h PRN * Continue TRC/Nebs with chest PT - goal 92% saturation Continue home statin, lasix, ASA, and escitalopram DVT prophylaxis Lovenox Full code Regular diet Problem List: 1. Bronchitis 2. COPD (chronic obstructive pulmonary disease) 3. COPD exacerbation Pain Ratin Pain Location: na Pain Goal: Remain pain free Pain Plan: na Tomorrow's Labs & Rationales: CBC.BARBARA Santillan MD,Uzma 06/07/17 0819: Attending MD Review Statement Attending Statement Attending MD Statement: examined this patient (pt seen and examined on 06/06), discuss w/resident/PA/CONVERSION DEVELOPER, agreed w/resident/PA/CONVERSION DEVELOPER, discussed with nursing Attending Assessment/Plan: 81 y/o F presented with COPD exacerbation. still on O2 not use O2 at home. lung exam with diminished breath sounds and wheezing. Taper solumedrol to q12h and to prednisone in am if improved lung exam and symptoms. amb sat prior to discharge. wean O2 as tolerated.
[2017-06-06 14:43] VITALS: BP 120/60
--- NOTE | 2017-06-06 15:03 | PN- Pulmonary ---
Subjective HPI/Critical Care Issues: Patient seen and examined this morning. She appears to be doing somewhat better however significant wheezing is continued. Objective Current Medications: Current Medications Sig/Alessandra Start time Last Medication Dose Route Stop Time Status Admin Acetaminophen 650 MG Q8P PRN 05/31 0330 AC 06/01 PO 1826 Acetylcysteine 4 ML BID 06/04 1100 AC 06/06 INH 0922 Albuterol Sulfate 3 ML TID 06/04 2200 AC 06/06 INH 1421 Albuterol Sulfate 2 PUF Q4-6 PRN PRN 05/30 1830 AC 06/05 INH 0216 Aspirin Buffered 81 MG DAILY 05/31 1000 AC 06/06 PO 1011 Bisacodyl 5 MG DAILY 06/01 1034 AC 06/05 PO 1035 Budesonide/ 2 PUF BID 05/30 2200 AC 06/06 Formoterol Fumarate INH 1015 Ceftriaxone Sodium 1,000 MG DAILY 06/02 1000 AC 06/06 IV 1015 Enoxaparin Sodium 40 MG DAILY 05/31 1000 AC 06/06 SC 1014 Escitalopram Oxalate 10 MG AT BEDTIME 05/31 2200 AC 06/05 PO 2148 Furosemide 20 MG DAILY 05/31 1000 AC 06/06 PO 1011 Guaifenesin 600 MG Q12 05/31 0047 AC 06/06 PO 1011 Guaifenesin/Codeine 10 ML Q12P PRN 06/02 1530 AC 06/05 Phosphate PO 2155 Guaifenesin/ 10 ML BID PRN 06/02 1015 AC 06/04 Dextromethorphan PO 1649 Methylprednisolone 40 MG Q12 06/06 2200 AC IV Methylprednisolone 40 MG Q8 06/02 1400 DC 06/06 IV 0633 Omeprazole 20 MG BID 05/31 1000 AC 06/06 PO 1011 Polyethylene Glycol 17 GM DAILY 06/01 1033 AC 06/04 PO 0945 Pravastatin Sodium 80 MG 1700 05/30 1915 AC 06/05 PO 1731 Tiotropium [place] 1 PUF DAILY 06/01 1314 AC 06/06 INH 1014 Vital Signs & I&O Last 24 Hrs of Vitals and I&O: Vital Signs Date Time Temp Pulse Resp B/P B/P Pulse O2 O2 Flow FiO2 Mean Ox Delivery Rate 06/06 1443 97.5 78 20 120/60 93 Nasal Cannula 06/06 0920 94 Nasal 1.0L Cannula 06/06 0649 97.9 80 20 148/82 95 06/06 0000 92 Nasal 1.0L Cannula 06/05 2240 98.7 83 20 110/80 91 Nasal 1.0L Cannula 06/05 1935 94 Nasal 1.0L Cannula 06/05 1538 97.9 85 18 142/80 92 Intake & Output 06/06 1600 06/06 0800 06/06 0000 Intake Total 240 Output Total Balance 240 Intake, Oral 240 Exam Other Physical Findings: Generally - Awake Head and neck - normocephalic, atraumatic, EOMI grossly intact Cardiovascular - S1, S2, no murmurs, rubs or gallops Lungs - bilateral wheezing Abdomen - Bowel sounds positive, soft, non-tender Extremities - without edema Impression/Plan Impression/Plan Impression/Plan: Impression 81F * asthma exacerbation Plan -continue mucomyst nebulized bid -keep solumedrol at the same dose tomorrow June 07 we'll plan to reduce -trc/nebs -5 day zithromax course -cont home meds -spiriva once daily DVT prophylaxis at all times
[2017-06-06 22:51] VITALS: BP 150/80
[2017-06-07 06:53] VITALS: BP 178/98
--- NOTE | 2017-06-07 07:29 | PN- Housestaff ---
[place] 06/07/17 0729: Subjective Follow-up For: COPD Exacerbation due to bronchitis Sputum culture is positive with klebsiella and yeast. Subjective: No overnight events. Patient remained afebrile overnight. Seen and examined this morning. She denied any chest pain, palpitation, vomiting, nausea, abdominal pain and dysuria. Patient reported having intermittent cough. Patient become short of breath during coughing episodes. Patient is on 1 L of oxygen and maintaining saturation 93%. Review of Systems Constitutional: Reports: no symptoms. EENTM: Reports: no symptoms. Cardiovascular: Reports: no symptoms. Respiratory: Reports: cough. Gastrointestinal: Reports: no symptoms. Genitourinary: Reports: no symptoms. Musculoskeletal: Reports: no symptoms. Neurological/Psychological: Reports: no symptoms. Objective Last 24 Hrs of Vital Signs/I&O Vital Signs Date Time Temp Pulse Resp B/P B/P Pulse O2 O2 Flow FiO2 Mean Ox Delivery Rate 06/07 0653 98.0 76 20 178/98 93 06/07 0000 96 Nasal 1.0L Cannula 06/06 2251 98.4 83 20 150/80 96 Room Air 06/06 2044 95 Nasal 1.5L Cannula 06/06 1443 97.5 78 20 120/60 93 Nasal Cannula 06/06 0920 94 Nasal 1.0L Cannula Intake & Output 06/07 1600 06/07 0800 06/07 0000 Intake Total 120 Output Total Balance 120 Intake, Oral 120 Physical Exam General Appearance: Alert, Oriented X3, Cooperative Skin Temp/Moisture Exam: Warm/Dry Sepsis Skin Exam (color): Normal for Ethnicity HEENT: Atraumatic, PERRLA, EOMI Neck: Supple Cardiovascular: Normal S1, Normal S2 Lungs: B/L WHEEZING Abdomen: Soft, No Tenderness Neurological: Normal Speech, Strength at 5/5 X4 Ext, Normal Tone Extremities: No Edema Assessment/Plan Assessment: 81 YO F former smoker (quit 30 years back) with PMH of HTN, COPD not on home O2, pneumonia, B/L knee and shulder replacements came to ED with chief complaint of cough with sputum, weakness and shortness of breath on exertion since this afternoon. We will admit the patient on general medicine floor to treat her COPD exacerbation due to acute bronchitis. COPD exacerbation due to acute bronchitis: -We'll continue oxygen supplementation to maintain saturation above 90%. -TRC nebulization -IV azithromycin discontinued today. -IV ceftriaxone to treat klebsiella. Day 6 -IV Solu-Medrol 40 mg every 12 hourly. -Sputum culture is growing klebsiella and yeast. -Chest physiotherapy -Incentive spirometer. -spiriva once daily inhaler was added. -we will start mucomyst bid for helping her to bring up phlegm. History of hyperlipidemia: We will continue pravastatin. History of CAD and hypertension: -We will continue Lasix. -We will continue aspirin. History of depression: -We will continue escitalopram. DVT prophylaxis: Mechanical and Lovenox CODE STATUS: Full code Problem List: 1. Bronchitis 2. COPD exacerbation Pain Ratin Pain Location: NONE Pain Goal: Remain pain free Pain Plan: PAIN PATHWAY Tomorrow's Labs & Rationales: CBC/BEP Jacque CARVER,B 06/07/17 1056: Attending MD Review Statement Attending Statement Attending MD Statement: examined this patient, discuss w/resident/PA/MANAGER INTEGRATED, agreed w/resident/PA/MANAGER INTEGRATED, discussed with nursing, discussed with case mgmt Attending Assessment/Plan: 81 y/o F presented with COPD exacerbation. still on O2 not use O2 at home.pt reports feeling luittle better. lung exam still with diminished breath sounds and wheezing. c/w solumedrol q12h, no taper today. Transition to prednisone in am if improved lung exam and symptoms. amb sat prior to discharge. wean O2 as tolerated.
[2017-06-07 09:06] LABS: ABSOLUTE BASOPHIL COUNT 0 /CUMM (0.0-0.2); ABSOLUTE EOSINOPHIL COUNT 0 /CUMM (0.0-0.7); ABSOLUTE GRANULOCYTE CT 9.9 /CUMM (1.4-6.5); ABSOLUTE LYMPH COUNT 0.9 /CUMM (1.2-3.4); ABSOLUTE MONOCYTE COUNT 0.5 /CUMM (0.10-0.60); BASOPHIL % 0.1 % (0.0-2.0); EOSINOPHIL % 0 % (0-5); GRANULOCYTE % 88.1 % (42.2-75.2); HEMATOCRIT 33.8 % (37-47); MEAN CORPUSCULAR HGB 26.7 PG (27.0-31.0); MEAN CORPUSCULAR HGB CONC 32.2 G/DL (33.0-37.0); MEAN CORPUSCULAR VOLUME 82.9 FL (81.0-99.0); PLATELET COUNT 488 /CUMM (130-400); RBC DISTRIBUTION WIDTH 18.3 % (11.5-14.5); RED BLOOD CELL CT 4.08 /CUMM (4.20-5.40); WHITE BLOOD CELL COUNT 11.2 /CUMM (4.8-10.8)
--- NOTE | 2017-06-07 13:49 | PN- Pulmonary ---
Subjective HPI/Critical Care Issues: Patient seen and examined this morning. She is finally feeling significantly better. Objective Current Medications: Current Medications Sig/Alessandra Start time Last Medication Dose Route Stop Time Status Admin Acetaminophen 650 MG Q8P PRN 05/31 0330 AC 06/01 PO 1826 Acetylcysteine 4 ML BID 06/04 1100 AC 06/07 INH 0902 Albuterol Sulfate 3 ML TID 06/04 2200 AC 06/07 INH 0901 Albuterol Sulfate 2 PUF Q4-6 PRN PRN 05/30 1830 AC 06/05 INH 0216 Aspirin Buffered 81 MG DAILY 05/31 1000 AC 06/07 PO 1100 Bisacodyl 5 MG DAILY 06/01 1034 AC 06/05 PO 1035 Budesonide/ 2 PUF BID 05/30 2200 AC 06/07 Formoterol Fumarate INH 1044 Ceftriaxone Sodium 1,000 MG DAILY 06/02 1000 AC 06/07 IV 1045 Enoxaparin Sodium 40 MG DAILY 05/31 1000 AC 06/07 SC 1044 Escitalopram Oxalate 10 MG AT BEDTIME 05/31 2200 AC 06/06 PO 2125 Furosemide 20 MG DAILY 05/31 1000 AC 06/07 PO 1045 Guaifenesin 600 MG Q12 05/31 0047 AC 06/07 PO 1045 Guaifenesin/Codeine 10 ML Q12P PRN 06/02 1530 AC 06/06 Phosphate PO 2125 Guaifenesin/ 10 ML BID PRN 06/02 1015 AC 06/04 Dextromethorphan PO 1649 Methylprednisolone 40 MG Q12 06/06 2200 AC 06/07 IV 1044 Omeprazole 20 MG BID 05/31 1000 AC 06/07 PO 1059 Polyethylene Glycol 17 GM DAILY 06/01 1033 AC 06/04 PO 0945 Pravastatin Sodium 80 MG 1700 05/30 1915 AC 06/06 PO 1749 Tiotropium [place] 1 PUF DAILY 06/01 1314 AC 06/07 INH 1045 Vital Signs & I&O Last 24 Hrs of Vitals and I&O: Vital Signs Date Time Temp Pulse Resp B/P B/P Pulse O2 O2 Flow FiO2 Mean Ox Delivery Rate 06/07 0902 94 Nasal 1.0L Cannula 06/07 0653 98.0 76 20 178/98 93 06/07 0000 96 Nasal 1.0L Cannula 06/06 2251 98.4 83 20 150/80 96 Room Air 06/06 2043 95 Nasal 1.5L Cannula 06/06 1443 97.5 78 20 120/60 93 Nasal Cannula Intake & Output 06/07 1600 06/07 0800 06/07 0000 Intake Total 120 Output Total Balance 120 Intake, Oral 120 Exam Other Physical Findings: Generally - Awake Head and neck - normocephalic, atraumatic, EOMI grossly intact Cardiovascular - S1, S2, no murmurs, rubs or gallops Lungs - improved bilateral wheezing Abdomen - Bowel sounds positive, soft, non-tender Extremities - without edema Results Last 24 Hrs of Lab Results: Laboratory Tests 06/07/17 07: Anion Gap 11, Estimated GFR > 60, BUN/Creatinine Ratio 31.4 H, CBC w Diff NO MAN DIFF REQ, RBC 4.08 L, MCV 82.9, MCH 26.7 L, MCHC 32.2 L, RDW 18.3 H, MPV 9.0, Gran % 88.1 H, Lymphocytes % 7.6 L, Monocytes % 4.2, Eosinophils % 0, Basophils % 0.1, Absolute Granulocytes 9.9 H, Absolute Lymphocytes 0.9 L, Absolute Monocytes 0.5, Absolute Eosinophils 0, Absolute Basophils 0 Impression/Plan Impression/Plan Impression/Plan: Impression 81F * asthma exacerbation Plan -continue mucomyst nebulized bid -keep 40mg iv q12h solumedrol - if does better within 24-48 hours will transition to PO and plan for discharge -trc/nebs -5 day zithromax course -cont home meds -spiriva once daily DVT prophylaxis at all times
[2017-06-07 15:50] VITALS: BP 122/62
[2017-06-07 21:11] VITALS: BP 162/86
[2017-06-08 06:38] VITALS: BP 164/88
--- NOTE | 2017-06-08 07:16 | PN- Housestaff ---
[place] 06/08/17 0716: Subjective Follow-up For: COPD Exacerbation due to bronchitis Sputum culture is positive with klebsiella and yeast. Subjective: No overnight events. Patient remained afebrile overnight. Seen and examined this morning. Patient denied any chest pain, nausea, vomiting, chills, fever, abdominal pain dysuria. Patient reported having intermittent cough and bringing yellow colored phlegm. Patient is on 1/2 liter oxygen and maintaining saturation 92%. We will walk her around and check her abulatorysats. Review of Systems Constitutional: Reports: no symptoms. EENTM: Reports: no symptoms. Cardiovascular: Reports: no symptoms. Respiratory: Reports: cough, short of breath, sputum production. Gastrointestinal: Reports: no symptoms. Genitourinary: Reports: no symptoms. Musculoskeletal: Reports: no symptoms. Neurological/Psychological: Reports: no symptoms. Objective Last 24 Hrs of Vital Signs/I&O Vital Signs Date Time Temp Pulse Resp B/P B/P Pulse O2 O2 Flow FiO2 Mean Ox Delivery Rate 06/08 0638 98.4 76 20 164/88 92 06/08 0000 Nasal 0.5L Cannula 06/07 2111 98.8 83 22 162/86 92 Nasal 0.5L Cannula 06/07 1929 94 Nasal 2.0L Cannula 06/07 1550 98.2 87 20 122/62 91 Nasal 1.0L Cannula 06/07 0902 94 Nasal 1.0L Cannula Physical Exam General Appearance: Alert, Oriented X3, Cooperative Skin Temp/Moisture Exam: Warm/Dry Sepsis Skin Exam (color): Normal for Ethnicity HEENT: Atraumatic, PERRLA, EOMI Neck: Supple Cardiovascular: Normal S1, Normal S2 Lungs: b/l bronchospasm Abdomen: Soft, No Tenderness Neurological: Normal Speech, Normal Tone Extremities: No Edema Assessment/Plan Assessment: 81 YO F former smoker (quit 30 years back) with PMH of HTN, COPD not on home O2, pneumonia, B/L knee and shulder replacements came to ED with chief complaint of cough with sputum, weakness and shortness of breath on exertion since this afternoon. We will admit the patient on general medicine floor to treat her COPD exacerbation due to acute bronchitis. COPD exacerbation due to acute bronchitis: -We'll continue oxygen supplementation to maintain saturation above 90%. -TRC nebulization -IV Solu-Medrol 40 mg every 12 hourly. -Sputum culture is growing klebsiella and yeast. -Chest physiotherapy -Incentive spirometer. -spiriva once daily inhaler was added. -we will start mucomyst bid for helping her to bring up phlegm. -Patient is still growing klebsiella in putum and its not sensitive to ceftriaxone so we will start unasyn Q6 IV. -UNASYN IV Day 1 History of hyperlipidemia: We will continue pravastatin. History of CAD and hypertension: -We will continue Lasix. -We will continue aspirin. History of depression: -We will continue escitalopram. DVT prophylaxis: Mechanical and Lovenox CODE STATUS: Full code Problem List: 1. COPD exacerbation 2. Bronchitis Pain Ratin Pain Location: none Pain Goal: Remain pain free Pain Plan: pain pathway Tomorrow's Labs & Rationales: Minnie Lester MD 06/08/17 1303: Attending MD Review Statement Attending Statement Attending MD Statement: examined this patient, discuss w/resident/PA/DUST OPERATOR, agreed w/resident/PA/DUST OPERATOR, reviewed EMR data (avail) Attending Assessment/Plan: 81F PMH asthma/COPD not on home O2, HTN, aortic stenosis, GERD, depression admitted with COPD exacerbation and acute bronchitis. Patient still feels short of breath. She is still wheezing and coughing, though this is slowly improving. She is still dypsneic with exertion. She was on 0.5L NC and saturating 93%. 1. COPD Exacerbation 2. Acute bronchitis secondary to Klebsiella Plan - Continue on general medicine - SPutum cultures still positive for Klebsiella, will switch from Ceftriaxone to Unasyn - Continue Robitussin with codeine q12h PRN - Continue Solumedrol 40mg q12h - Chest physiotherapy - Nebulizer treatments - Home medications - DVT PPx
[2017-06-08 10:28] LABS: ABSOLUTE BASOPHIL COUNT 0 /CUMM (0.0-0.2); ABSOLUTE EOSINOPHIL COUNT 0 /CUMM (0.0-0.7); ABSOLUTE GRANULOCYTE CT 10.5 /CUMM (1.4-6.5); ABSOLUTE MONOCYTE COUNT 0.4 /CUMM (0.10-0.60); BASOPHIL % 0 % (0.0-2.0); EOSINOPHIL % 0 % (0-5); HEMATOCRIT 35.1 % (37-47); MEAN CORPUSCULAR HGB 26.7 PG (27.0-31.0); MEAN CORPUSCULAR HGB CONC 32.2 G/DL (33.0-37.0); MEAN CORPUSCULAR VOLUME 82.9 FL (81.0-99.0); PLATELET COUNT 508 /CUMM (130-400); RBC DISTRIBUTION WIDTH 17.6 % (11.5-14.5); RED BLOOD CELL CT 4.23 /CUMM (4.20-5.40); WHITE BLOOD CELL COUNT 11.8 /CUMM (4.8-10.8)
--- NOTE | 2017-06-08 11:10 | PN- Pulmonary ---
Subjective HPI/Critical Care Issues: Patient seen and examined this morning. She continues to improve however slowly we are anticipating discharge during this week. Objective Current Medications: Current Medications Sig/Alessandra Start time Last Medication Dose Route Stop Time Status Admin Acetaminophen 650 MG Q8P PRN 05/31 0330 AC 06/01 PO 1826 Acetylcysteine 4 ML BID 06/04 1100 AC 06/08 INH 0853 Albuterol Sulfate 3 ML TID 06/04 2200 AC 06/08 INH 0852 Albuterol Sulfate 2 PUF Q4-6 PRN PRN 05/30 1830 AC 06/05 INH 0216 Aspirin Buffered 81 MG DAILY 05/31 1000 AC 06/07 PO 1100 Bisacodyl 5 MG DAILY 06/01 1034 AC 06/05 PO 1035 Budesonide/ 2 PUF BID 05/30 2200 AC 06/07 Formoterol Fumarate INH 2131 Ceftriaxone Sodium 1,000 MG DAILY 06/02 1000 AC 06/07 IV 1045 Enoxaparin Sodium 40 MG DAILY 05/31 1000 AC 06/07 SC 1044 Escitalopram Oxalate 10 MG AT BEDTIME 05/31 2200 AC 06/07 PO 2131 Furosemide 20 MG DAILY 05/31 1000 AC 06/07 PO 1045 Guaifenesin 600 MG Q12 05/31 0047 AC 06/07 PO 2131 Guaifenesin/Codeine 10 ML Q12P PRN 06/02 1530 AC 06/07 Phosphate PO 2130 Guaifenesin/ 10 ML BID PRN 06/02 1015 AC 06/04 Dextromethorphan PO 1649 Methylprednisolone 40 MG Q12 06/06 2200 AC 06/07 IV 2131 Omeprazole 20 MG BID 05/31 1000 AC 06/07 PO 2131 Polyethylene Glycol 17 GM DAILY 06/01 1033 AC 06/04 PO 0945 Pravastatin Sodium 80 MG 1700 05/30 1915 AC 06/07 PO 1653 Tiotropium [place] 1 PUF DAILY 06/01 1314 AC 06/07 INH 1045 Vital Signs & I&O Last 24 Hrs of Vitals and I&O: Vital Signs Date Time Temp Pulse Resp B/P B/P Pulse O2 O2 Flow FiO2 Mean Ox Delivery Rate 06/08 637 98.4 76 20 164/88 92 06/08 0000 Nasal 0.5L Cannula 06/07 2110 98.8 83 22 162/86 92 Nasal 0.5L Cannula 06/07 1929 94 Nasal 2.0L Cannula 06/07 1550 98.2 87 20 122/62 91 Nasal 1.0L Cannula Exam Other Physical Findings: Generally - Awake Head and neck - normocephalic, atraumatic, EOMI grossly intact Cardiovascular - S1, S2, no murmurs, rubs or gallops Lungs - improved bilateral wheezing Abdomen - Bowel sounds positive, soft, non-tender Extremities - without edema Results Last 24 Hrs of Lab Results: Laboratory Tests 06/08/17 0712: Anion Gap 12, Estimated GFR > 60, BUN/Creatinine Ratio 31.4 H, CBC w Diff Pending, WBC Pending, RBC Pending, Hgb Pending, Hct Pending, MCV Pending, MCH Pending, MCHC Pending, RDW Pending, Plt Count Pending, MPV Pending, Gran % Pending, Lymphocytes % Pending, Monocytes % Pending, Eosinophils % Pending, Basophils % Pending, Absolute Granulocytes Pending, Absolute Lymphocytes Pending , Absolute Monocytes Pending, Absolute Eosinophils Pending, Absolute Basophils Pending Impression/Plan Impression/Plan Impression/Plan: Impression 81F * asthma exacerbation Plan -continue mucomyst nebulized bid -keep 40mg iv q12h solumedrol, if no events, begin 2/6 prednisone 60mg -trc/nebs -s/p zithromax course -cont home meds -spiriva once daily DVT prophylaxis at all times
[2017-06-08 11:49] LABS: GRANULOCYTE % 88.3 % (42.2-75.2)
[2017-06-08 13:48] VITALS: BP 140/78
[2017-06-08 22:52] VITALS: BP 162/91
[2017-06-09 06:24] VITALS: BP 142/78
--- NOTE | 2017-06-09 07:14 | PN- Housestaff ---
YoniCoeburn 06/09/17 0710: Subjective Follow-up For: COPD Exacerbation due to bronchitis Sputum culture is positive with klebsiella and yeast. Subjective: No overnight events. Patient remained afebrile overnight. Seen and examined this morning. She denied any chest pain, nausea, vomiting, lightheadedness, abdominal pain and dysuria. Patient is on room air and maintaining saturation 92%. Patient having intermittent cough but not bringing any phlegm. Patient is unstaedy this morning and requesting STR. We will get PT eval again. Review of Systems Constitutional: Reports: no symptoms. EENTM: Reports: no symptoms. Cardiovascular: Reports: no symptoms. Respiratory: Reports: cough. Gastrointestinal: Reports: no symptoms. Genitourinary: Reports: no symptoms. Neurological/Psychological: Reports: no symptoms. Objective Last 24 Hrs of Vital Signs/I&O Vital Signs Date Time Temp Pulse Resp B/P B/P Pulse O2 O2 Flow FiO2 Mean Ox Delivery Rate 06/09 0917 92 Room Air 06/09 0624 92 Room Air 06/09 0624 97.6 80 24 142/78 92 Room Air / 0000 94 / 2252 98.0 75 20 162/91 94 Room Air 02/ 1950 92 Room Air / 1600 92 Room Air / 1348 97.7 74 20 140/78 94 Room Air / 1330 92 Room Air Intake & Output 06/09 1600 /06 0800 02/ 0000 Intake Total 240 580 Output Total Balance 240 580 Intake, IV 240 100 Intake, Oral 480 Physical Exam General Appearance: Alert, Oriented X3, Cooperative Skin Temp/Moisture Exam: Warm/Dry Sepsis Skin Exam (color): Normal for Ethnicity HEENT: Atraumatic, PERRLA, EOMI Neck: Supple Cardiovascular: Normal S1, Normal S2 Lungs: bronchospasm b/l Abdomen: Soft, No Tenderness Neurological: Normal Speech, Strength at 5/5 X4 Ext, Normal Tone Extremities: No Edema Assessment/Plan Assessment: 81 YO F former smoker (quit 30 years back) with PMH of HTN, COPD not on home O2, pneumonia, B/L knee and shulder replacements came to ED with chief complaint of cough with sputum, weakness and shortness of breath on exertion since this afternoon. Patient is being followed on general medicine for;- COPD exacerbation due to acute bronchitis: -On room air maintaining sat 92%. -TRC nebulization -prednisone 60mg with taper. -Chest physiotherapy -Incentive spirometer. -spiriva once daily inhaler was added. -Continue mucomyst bid for helping her to bring up phlegm. -Patient is still growing klebsiella in putum even after 6 days of ceftriaxone. -Unasyn iv Day 2. History of hyperlipidemia: -continue pravastatin. History of CAD and hypertension: -continue Lasix. -continue aspirin. History of depression: -continue escitalopram. DVT prophylaxis: Mechanical and Lovenox CODE STATUS: Full code Problem List: 1. COPD exacerbation 2. Bronchitis Pain Ratin Pain Location: none Pain Goal: Remain pain free Pain Plan: pain pathway Tomorrow's Labs & Rationales: none Minnie Rushing MD 06/09/17 1157: Attending MD Review Statement Attending Statement Attending MD Statement: examined this patient, discuss w/resident/PA/WARP SCOURING VAT TENDER, agreed w/resident/PA/WARP SCOURING VAT TENDER, reviewed EMR data (avail) Attending Assessment/Plan: 81F PMH asthma/COPD not on home O2, HTN, aortic stenosis, GERD, depression admitted with COPD exacerbation and acute bronchitis. Patient is slowly improving. She is now on room air. She becomes dyspneic with a few steps and has difficulty walking to the bathroom. 1. COPD Exacerbation 2. Acute bronchitis secondary to Klebsiella Plan - Continue on general medicine - Continue Unasyn, Augmentin on eventual discharge - Continue Robitussin with codeine q12h PRN - Prednisone taper - Chest physiotherapy - Nebulizer treatments - Home medications - DVT PPx - Would benefit from STR at this point to regain lung function and strength, will re-consult PT
--- NOTE | 2017-06-09 13:27 | PN- Pulmonary ---
Subjective HPI/Critical Care Issues: Patient seen and examined this morning. She is feeling better however with exertion gets weak and dyspneic. Objective Current Medications: Current Medications Sig/Alessandra Start time Last Medication Dose Route Stop Time Status Admin Acetaminophen 650 MG Q8P PRN 05/31 0330 AC 06/01 PO 1826 Acetylcysteine 4 ML BID 06/04 1100 AC 06/08 INH 1950 Albuterol Sulfate 3 ML TID 06/04 2200 AC 06/09 INH 0913 Albuterol Sulfate 2 PUF Q4-6 PRN PRN 05/30 1830 AC 06/05 INH 0216 Ampicillin Sodium/ 1,500 MG Q6H 06/09 0100 AC 06/09 Sulbactam Sodium IV 1312 Sodium Chloride 50 ML Ampicillin Sodium/ 1,500 MG Q6H 06/08 1600 DC 06/08 Sulbactam Sodium IV 1909 Sodium Chloride 50 ML Ampicillin Sodium/ 1,500 MG Q6H 06/08 1342 CAN Sulbactam Sodium IV Sodium Chloride 100 ML Aspirin Buffered 81 MG DAILY 05/31 1000 AC 06/09 PO 1003 Bisacodyl 5 MG DAILY 06/01 1034 AC 06/05 PO 1035 Budesonide/ 2 PUF BID 05/30 2200 AC 06/09 Formoterol Fumarate INH 1004 Ceftriaxone Sodium 1,000 MG DAILY 06/02 1000 DC 06/08 IV 1112 Enoxaparin Sodium 40 MG DAILY 05/31 1000 AC 06/09 SC 1006 Escitalopram Oxalate 10 MG AT BEDTIME 05/31 2200 AC 06/08 PO 2142 Furosemide 20 MG DAILY 05/31 1000 AC 06/09 PO 1003 Guaifenesin 600 MG Q12 05/31 0047 AC 06/09 PO 1003 Guaifenesin/Codeine 10 ML Q12P PRN 06/02 1530 AC 06/08 Phosphate PO 2241 Guaifenesin/ 10 ML BID PRN 06/02 1015 AC 06/04 Dextromethorphan PO 1649 Methylprednisolone 40 MG Q12 06/06 2200 DC 06/08 IV 2143 Omeprazole 20 MG BID 05/31 1000 AC 06/09 PO 1006 Polyethylene Glycol 17 GM DAILY 06/01 1033 AC 06/04 PO 0945 Pravastatin Sodium 80 MG 1700 05/30 1915 AC 06/08 PO 1736 Prednisone 10 MG DAILY 06/24 1000 AC PO 06/26 1001 Prednisone 20 MG DAILY 06/21 1000 AC PO 06/23 1001 Prednisone 30 MG DAILY 06/18 1000 AC PO 06/20 1001 Prednisone 40 MG DAILY 06/15 1000 AC PO 06/17 1001 Prednisone 50 MG DAILY 06/12 1000 AC PO 06/14 1001 Prednisone 60 MG DAILY 06/09 1000 CAN PO 06/27 0959 Prednisone 60 MG DAILY 06/09 1000 AC 06/09 PO 06/11 1001 1312 Tiotropium [place] 1 PUF DAILY 06/01 1314 AC 06/09 INH 1004 Vital Signs & I&O Last 24 Hrs of Vitals and I&O: Vital Signs Date Time Temp Pulse Resp B/P B/P Pulse O2 O2 Flow FiO2 Mean Ox Delivery Rate 06/09 0917 92 Room Air 06/09 0800 Room Air Room Air 06/09 0624 92 Room Air 06/09 0624 97.6 80 24 142/78 92 Room Air 06/09 0000 94 / 2252 98.0 75 20 162/91 94 Room Air 06/08 1950 92 Room Air 06/08 1600 92 Room Air 06/08 1348 97.7 74 20 140/78 94 Room Air 06/08 1330 92 Room Air Intake & Output 06/09 1600 /06 0800 02/06 0000 Intake Total 240 580 Output Total Balance 240 580 Intake, IV 240 100 Intake, Oral 480 Exam Other Physical Findings: Generally - Awake Head and neck - normocephalic, atraumatic, EOMI grossly intact Cardiovascular - S1, S2, no murmurs, rubs or gallops Lungs - improved bilateral wheezing Abdomen - Bowel sounds positive, soft, non-tender Extremities - without edema Impression/Plan Impression/Plan Impression/Plan: Impression 81F * asthma exacerbation Plan -discontinue mucomyst -prednisone taper -PT consult - pt amenable to rehab -trc/nebs -s/p zithromax course -cont home meds -spiriva once daily DVT prophylaxis at all times
[2017-06-09 14:23] VITALS: BP 100/63
--- NOTE | 2017-06-09 16:18 | Event Note ---
Event Note Event Note: noted klebsiella in sputum - sensitive to unasyn also per dept. of health - influenza positive - will recieve tamiflu and isolate check ct chest given slow progress
--- NOTE | 2017-06-09 19:12 | CT SCAN REPORT ---
EXAMINATION: CT CHEST WITHOUT CONTRAST CLINICAL INFORMATION: 81-year-old female with shortness of breath and wheezing. COMPARISON: Chest CT from 04/23/2017. CXR from 06/01/2017. TECHNIQUE: Multidetector volumetric CT imaging of the chest was done. Axial MIP volume rendering provided. Sagittal and coronal reformatted images were obtained. DLP: 282 mGy-cm FINDINGS: AUTOMATIC EQUIPMENT TECHNICIAN: Bilateral shoulder arthroplasties appear intact. LUNGS AND PLEURA: Severe centrilobular emphysema and chronic, mild thickening of the bronchial schmidt. There are a few scattered endobronchial secretions. There are a several scattered linear opacities of scarring or atelectasis in both lungs. No acute pulmonary edema, consolidation, pneumothorax or pleural effusion. Again noted are the stable small calcified and noncalcified pulmonary nodules, including a noncalcified 0.4 cm nodule of the right upper lobe (image 164, series 4). MEDIASTINUM: The heart size is normal. Three-vessel coronary artery atherosclerotic calcification. Small pericardial effusion. Atherosclerotic calcification of the thoracic aorta without aneurysm. Moderate-sized hiatal hernia. Thyroid gland is grossly unremarkable. LYMPHATICS: No pathologic sized axillary, hilar or mediastinal lymph nodes. UPPER ABDOMEN: Adrenal glands are normal. No acute findings within the solid or hollow viscera of the upper abdomen. A calcified portacaval lymph node is noted. SKELETAL/CHEST WALL: Streak artifact is produced by the bilateral shoulder arthroplasty hardware. No acute fractures within the extensively degenerated, levoscoliotic thoracic spine. IMPRESSION: 1. No evidence of acute pneumonia, pleural effusion or lymphadenopathy. 2. Severe pulmonary emphysema. 3. Small, stable calcified and noncalcified pulmonary nodules. No interval development of a suspicious nodule or mass. 4. Atherosclerotic disease of coronary arteries and thoracic aorta without aortic aneurysm. 5. Moderate-sized hiatal hernia.
[2017-06-09 21:27] VITALS: BP 104/54
[2017-06-10 06:57] VITALS: BP 124/74
--- NOTE | 2017-06-10 07:21 | PN- Housestaff ---
YoniVega 06/10/17 0720: Subjective Follow-up For: COPD Exacerbation due to bronchitis (resolving) Sputum culture is positive with klebsiella and yeast. Flu positive Subjective: No overnight events. Patient remained afebrile overnight. seen and examined this morning. Patient denied any chest pain, short of breath, nausea, vomiting or material, fever, abdominal pain dysuria. Patient's cough has improved. But patient still feeling weak. Her flu test negative on admission but last day her PCR came back positive. She was started on Tamiflu yesterday. Patient is staying because she is feeling wea and may need STR. We will follow the PT recommendations. Review of Systems Constitutional: Reports: weakness. EENTM: Reports: no symptoms. Cardiovascular: Reports: no symptoms. Respiratory: Reports: cough. Gastrointestinal: Reports: no symptoms. Genitourinary: Reports: no symptoms. Musculoskeletal: Reports: no symptoms. Neurological/Psychological: Reports: no symptoms. Objective Last 24 Hrs of Vital Signs/I&O Vital Signs Date Time Temp Pulse Resp B/P B/P Pulse O2 O2 Flow FiO2 Mean Ox Delivery Rate 06/10 0821 92 Room Air 06/10 0800 Room Air Room Air 06/10 0657 98.2 84 18 124/74 95 / 2127 98.3 90 18 104/54 94 Room Air 06/09 2008 95 Room Air 06/09 1600 Room Air Room Air 06/09 1423 98.4 80 20 100/63 94 Room Air Physical Exam General Appearance: Alert, Oriented X3, Cooperative Skin Temp/Moisture Exam: Warm/Dry HEENT: Atraumatic, PERRLA, EOMI Neck: Supple Cardiovascular: Normal S1, Normal S2 Lungs: Decreased breath sounds Abdomen: Soft, No Tenderness Neurological: Normal Speech, Strength at 5/5 X4 Ext, Normal Tone, Sensation Intact Extremities: No Edema Assessment/Plan Assessment: 81 YO F former smoker (quit 30 years back) with PMH of HTN, COPD not on home O2, pneumonia, B/L knee and shulder replacements came to ED with chief complaint of cough with sputum, weakness and shortness of breath on exertion since this afternoon. Patient is being followed on general medicine for;- COPD exacerbation due to acute bronchitis:(resolving) -On room air maintaining sat 95%. -TRC nebulization -prednisone 60mg with taper. -Chest physiotherapy -Incentive spirometer. -spiriva once daily inhaler was added. -Mucomyst is discontinued today. -Unasyn is discontinued. Flu positive: -Day 2 on tamiflu -PCR came back positive yesterday. -Rapid flu test was negative on admission. History of hyperlipidemia: -continue pravastatin. History of CAD and hypertension: -continue Lasix. -continue aspirin. History of depression: -continue escitalopram. DVT prophylaxis: Mechanical and Lovenox CODE STATUS: Full code Problem List: 1. Bronchitis 2. COPD exacerbation 3. Flu Pain Ratin Pain Location: none Pain Goal: Remain pain free Pain Plan: pain pathway Tomorrow's Labs & Rationales: none Minnie Rushing MD 06/10/17 1313: Attending MD Review Statement Attending Statement Attending MD Statement: examined this patient, discuss w/resident/PA/JACKER FEEDER, agreed w/resident/PA/JACKER FEEDER, reviewed EMR data (avail) Attending Assessment/Plan: 81F PMH asthma/COPD not on home O2, HTN, aortic stenosis, GERD, depression admitted with COPD exacerbation and acute bronchitis. Patient is slowly improving. She is now on room air. She becomes dyspneic with a few steps and has difficulty walking to the bathroom. Found to be flu positive on repeat testing by department of health from 05/30 swab. 1. COPD Exacerbation 2. Acute bronchitis secondary to Klebsiella Plan - Continue on general medicine - Discontinue Unasyn after today - Continue Tamiflu - Chest CT shows no evidence of pneumonia - Continue Robitussin with codeine q12h PRN - Prednisone taper - Chest physiotherapy - Nebulizer treatments - Home medications - DVT PPx - Anticipated discharge tomorrow or Thursday. Please send CMR to pharmacy for review. - No further labs
[2017-06-10 09:38] LABS: HEMATOCRIT 36.2 % (37-47); MEAN CORPUSCULAR HGB 26.3 PG (27.0-31.0); MEAN CORPUSCULAR HGB CONC 31.9 G/DL (33.0-37.0); MEAN CORPUSCULAR VOLUME 82.4 FL (81.0-99.0); MEAN PLATELET VOLUME 9.2 FL (7.4-10.4); PLATELET COUNT 488 /CUMM (130-400); RBC DISTRIBUTION WIDTH 17.9 % (11.5-14.5); WHITE BLOOD CELL COUNT 11.6 /CUMM (4.8-10.8)
[2017-06-10] MEDS ORDERED: PREDNISONE10 M2 PO (09:52)
[2017-06-10] MEDS ORDERED: TAMIFLU75 M1 PO (09:52)
--- NOTE | 2017-06-10 12:03 | PN- Pulmonary ---
Subjective HPI/Critical Care Issues: Patient seen and examined as more. Overall she's feeling better her CAT scan is unrevealing. Objective Current Medications: Current Medications Sig/Alessandra Start time Last Medication Dose Route Stop Time Status Admin Acetaminophen 650 MG Q8P PRN 05/31 0330 AC 06/01 PO 1826 Acetylcysteine 4 ML BID 06/04 1100 AC 06/08 INH 1950 Albuterol Sulfate 3 ML TID 06/04 2200 AC 06/10 INH 0818 Albuterol Sulfate 2 PUF Q4-6 PRN PRN 05/30 1830 AC 06/05 INH 0216 Ampicillin Sodium/ 1,500 MG Q6H 06/09 2200 DC 06/10 Sulbactam Sodium IV 0443 Sodium Chloride 50 ML Ampicillin Sodium/ 1,500 MG Q6H 06/09 0100 DC 06/09 Sulbactam Sodium IV 1312 Sodium Chloride 50 ML Aspirin Buffered 81 MG DAILY 05/31 1000 AC 06/10 PO 1013 Bisacodyl 5 MG DAILY 06/01 1034 AC 06/05 PO 1035 Budesonide/ 2 PUF BID 05/30 2200 AC 06/10 Formoterol Fumarate INH 1013 Enoxaparin Sodium 40 MG DAILY 05/31 1000 AC 06/10 SC 1013 Escitalopram Oxalate 10 MG AT BEDTIME 05/31 2200 AC 06/09 PO 2252 Furosemide 20 MG DAILY 05/31 1000 AC 06/10 PO 1011 Guaifenesin 10 ML .STK-MED ONE 06/09 2240 DC PO 06/09 2241 Guaifenesin 600 MG Q12 05/31 0047 AC 06/10 PO 1013 Guaifenesin/Codeine 10 ML .STK-MED ONE 06/09 2312 DC Phosphate PO 06/09 2313 Guaifenesin/Codeine 10 ML Q12P PRN 06/02 1530 DC 06/08 Phosphate PO 2241 Guaifenesin/ 10 ML .STK-MED ONE 06/09 2320 DC Dextromethorphan PO 06/09 2321 Guaifenesin/ 10 ML BID PRN 06/02 1015 AC 06/09 Dextromethorphan PO 2321 Omeprazole 20 MG BID 05/31 1000 AC 06/09 PO 2252 Oseltamivir Phosphate 75 MG BID 06/09 2200 AC 06/09 PO 06/13 2159 2253 Polyethylene Glycol 17 GM DAILY 06/01 1033 AC 06/04 PO 0945 Pravastatin Sodium 80 MG 1700 05/30 1915 AC 06/09 PO 1727 Prednisone 10 MG DAILY 06/24 1000 AC PO 06/26 1001 Prednisone 20 MG DAILY 06/21 1000 AC PO 06/23 1001 Prednisone 30 MG DAILY 06/18 1000 AC PO 06/20 1001 Prednisone 40 MG DAILY 06/15 1000 AC PO 06/17 1001 Prednisone 50 MG DAILY 06/12 1000 AC PO 06/14 1001 Prednisone 60 MG DAILY 06/09 1000 AC 06/09 PO 06/11 1001 1312 Tiotropium [place] 1 PUF DAILY 06/01 1314 AC 06/10 INH 1013 Vital Signs & I&O Last 24 Hrs of Vitals and I&O: Vital Signs Date Time Temp Pulse Resp B/P B/P Pulse O2 O2 Flow FiO2 Mean Ox Delivery Rate 06/10 08 92 Room Air 06/10 0800 Room Air Room Air 06/10 0657 98.2 84 18 124/74 95 06/09 2127 98.3 90 18 104/54 94 Room Air 06/09 2007 95 Room Air 06/09 1600 Room Air Room Air 06/09 1423 98.4 80 20 100/63 94 Room Air Exam Other Physical Findings: Generally - Awake Head and neck - normocephalic, atraumatic, EOMI grossly intact Cardiovascular - S1, S2, no murmurs, rubs or gallops Lungs - improved bilateral wheezing Abdomen - Bowel sounds positive, soft, non-tender Extremities - without edema Results Last 24 Hrs of Lab Results: Laboratory Tests 06/10/17 0747: Anion Gap 10, Estimated GFR > 60, BUN/Creatinine Ratio 37.1 H, CBC w Diff MAN DIFF ORDERED, RBC 4.40, MCV 82.4, MCH 26.3 L, MCHC 31.9 L, RDW 17.9 H, MPV 9.2, Segmented Neutrophils 78 H, Lymphocytes 14 L, Monocytes 8, Platelet Estimate INCREASED, Polychromasia 1+, Hypochromic-Microcytic 1+, Anisocytosis 1+ Impression/Plan Impression/Plan Impression/Plan: Impression 81F * asthma exacerbation, reported to be secondary to influenza Plan -prednisone taper as ordered -PT consult - pt amenable to rehab if necessary vs discharge -trc/nebs -cont home meds -spiriva once daily -no signs of pneumonia - would stop abx for Klebsiella (was on unasyn) DVT prophylaxis at all times
[2017-06-10 15:08] VITALS: BP 104/70
[2017-06-10 22:06] VITALS: BP 112/70
--- NOTE | 2017-06-11 07:13 | PN- Housestaff ---
YoniVega 06/11/17 0712: Subjective Follow-up For: COPD Exacerbation due to bronchitis (resolving) Sputum culture is positive with klebsiella and yeast. Flu positive Subjective: Night events. Patient remained afebrile overnight. Seen and examined this morning. She denied any chest pain, short of breath, nausea, vomiting, chills, fever, abdominal pain dysuria. Patient cough has improved and she is on room air maintaining saturation 92%. Patient wants to leave tomorrow. Review of Systems Constitutional: Reports: no symptoms. EENTM: Reports: no symptoms. Cardiovascular: Reports: no symptoms. Respiratory: Reports: no symptoms. Gastrointestinal: Reports: no symptoms. Genitourinary: Reports: no symptoms. Neurological/Psychological: Reports: no symptoms. Objective Last 24 Hrs of Vital Signs/I&O Vital Signs Date Time Temp Pulse Resp B/P B/P Pulse O2 O2 Flow FiO2 Mean Ox Delivery Rate 06/11 0738 97.6 73 18 114/68 92 06/11 0000 Room Air 06/10 2206 97.9 88 19 112/70 95 Room Air 06/10 2027 92 Room Air Room Air 06/10 1600 Room Air Room Air 06/10 1508 97.3 79 22 104/70 99 Room Air 06/10 0821 92 Room Air Physical Exam General Appearance: Alert, Oriented X3, Cooperative Skin Temp/Moisture Exam: Warm/Dry HEENT: Atraumatic, PERRLA, EOMI Neck: Supple Cardiovascular: Normal S1, Normal S2 Lungs: Decreased breath sounds b/l Abdomen: Soft, No Tenderness Neurological: Normal Speech, Strength at 5/5 X4 Ext, Normal Tone, Sensation Intact Extremities: No Edema Assessment/Plan Assessment: 81 YO F former smoker (quit 30 years back) with PMH of HTN, COPD not on home O2, pneumonia, B/L knee and shulder replacements came to ED with chief complaint of cough with sputum, weakness and shortness of breath on exertion since this afternoon. Patient is being followed on general medicine for;- COPD exacerbation due to acute bronchitis:(resolving) -On room air maintaining sat 92%. -TRC nebulization -prednisone 60mg with taper. -Chest physiotherapy -Incentive spirometer. -spiriva once daily inhaler was added. Flu positive: -Day 3 on tamiflu -PCR came back positive yesterday. -Rapid flu test was negative on admission. History of hyperlipidemia: -continue pravastatin. History of CAD and hypertension: -continue Lasix. -continue aspirin. History of depression: -continue escitalopram. DVT prophylaxis: Mechanical and Lovenox CODE STATUS: Full code Problem List: 1. Flu 2. Bronchitis 3. COPD exacerbation Pain Ratin Pain Location: none Pain Goal: Remain pain free Pain Plan: pain pathway Tomorrow's Labs & Rationales: none Minnie Rushing MD 06/11/17 1314: Attending MD Review Statement Attending Statement Attending MD Statement: examined this patient, discuss w/resident/PA/BEEF CATTLE GRAZIER, agreed w/resident/PA/BEEF CATTLE GRAZIER, reviewed EMR data (avail) Attending Assessment/Plan: 81F PMH asthma/COPD not on home O2, HTN, aortic stenosis, GERD, depression admitted with COPD exacerbation and acute bronchitis. Patient is slowly improving. She is now on room air. She becomes dyspneic with a few steps and has difficulty walking to the bathroom. Found to be flu positive on repeat testing by department of health from 05/30 swab. 1. COPD Exacerbation 2. Acute bronchitis secondary to Klebsiella 3. Influenza A Plan - Stable for discharge home - Discontinue Unasyn after today - Continue Tamiflu - Chest CT shows no evidence of pneumonia - Prednisone taper - Home medications
[2017-06-11 07:38] VITALS: BP 114/68
[2017-06-11] MEDS ORDERED: PREDNISONE10 M2 PO (10:19)
[2017-06-11] MEDS ORDERED: TAMIFLU75 M1 PO (10:19)
[2017-06-11] MEDS ORDERED: SPIRIVA18 MCG INH (11:49)
--- NOTE | 2017-06-11 12:16 | PN- Pulmonary ---
Subjective HPI/Critical Care Issues: pt seen and examined comfortable faiza pa Objective Current Medications: Current Medications Sig/Alessandra Start time Last Medication Dose Route Stop Time Status Admin Acetaminophen 650 MG Q8P PRN 05/31 0330 AC 06/01 PO 1826 Acetylcysteine 4 ML BID 06/04 1100 DC 06/08 INH 1950 Albuterol Sulfate 3 ML TID 06/04 2200 AC 06/11 INH 0906 Albuterol Sulfate 2 PUF Q4-6 PRN PRN 05/30 1830 AC 06/05 INH 0216 Aspirin Buffered 81 MG DAILY 05/31 1000 AC 06/11 PO 0948 Bisacodyl 5 MG DAILY 06/01 1034 AC 06/05 PO 1035 Budesonide/ 2 PUF BID 05/30 2200 AC 06/11 Formoterol Fumarate INH 0949 Enoxaparin Sodium 40 MG DAILY 05/31 1000 AC 06/11 SC 0948 Escitalopram Oxalate 10 MG AT BEDTIME 05/31 2200 AC 06/10 PO 2110 Furosemide 20 MG DAILY 05/31 1000 AC 06/11 PO 0948 Guaifenesin 600 MG Q12 05/31 0047 AC 06/11 PO 0948 Guaifenesin/ 10 ML .ST-MED ONE 06/10 2116 DC Dextromethorphan PO 06/10 2118 Guaifenesin/ 10 ML BID PRN 06/02 1015 AC 06/10 Dextromethorphan PO 2117 Omeprazole 20 MG BID 05/31 1000 AC 06/11 PO 0948 Oseltamivir Phosphate 75 MG BID 06/09 2200 AC 06/11 PO 06/13 2159 0948 Polyethylene Glycol 17 GM DAILY 06/01 1033 AC 06/04 PO 0945 Pravastatin Sodium 80 MG 1700 05/30 1915 AC 06/10 PO 1718 Prednisone 10 MG DAILY 06/24 1000 AC PO 06/26 1001 Prednisone 20 MG DAILY 06/21 1000 AC PO 06/23 1001 Prednisone 30 MG DAILY 06/18 1000 AC PO 06/20 1001 Prednisone 40 MG DAILY 06/15 1000 AC PO 06/17 1001 Prednisone 50 MG DAILY 06/12 1000 AC PO 06/14 1001 Prednisone 60 MG DAILY 06/09 1000 DC 06/11 PO 06/11 1001 0948 Tiotropium [place] 1 PUF DAILY 06/01 1314 AC 06/11 INH 0949 Vital Signs & I&O Last 24 Hrs of Vitals and I&O: Vital Signs Date Time Temp Pulse Resp B/P B/P Pulse O2 O2 Flow FiO2 Mean Ox Delivery Rate 06/11 0907 91 Room Air Room Air 06/11 0800 Room Air 06/11 0738 97.6 73 18 114/68 92 06/11 0000 Room Air 06/10 2206 97.9 88 19 112/70 95 Room Air 06/10 2027 92 Room Air Room Air 06/10 1600 Room Air Room Air 06/10 1508 97.3 79 22 104/70 99 Room Air Exam Other Physical Findings: Generally - Awake Head and neck - normocephalic, atraumatic, EOMI grossly intact Cardiovascular - S1, S2, no murmurs, rubs or gallops Lungs - improved bilateral wheezing Abdomen - Bowel sounds positive, soft, non-tender Extremities - without edema Impression/Plan Impression/Plan Impression/Plan: Impression 81F * asthma exacerbation, reported to be secondary to influenza Plan -prednisone taper as ordered -trc/nebs -cont home meds -spiriva once daily -no signs of pneumonia - would stop abx for Klebsiella (was on unasyn) DVT prophylaxis at all times DC planning
== END 2017-06-11 13:45 | disposition home health service (06) | DRG 191 ==
LOC: DELPENDDIS → ERH 14:35 → ERHI 17:15 → 2NB 17:15 → ERHI 18:30 → ENRESERV 18:41 → ENTRNSPT 19:22 → EDTRNSPTSTS 19:31 → 2NB 19:40 → CMPTRNSPT 19:58 → 2NB 06-01 07:43 → ENPENDDIS 06-09 10:28 → 2NB 06-09 17:24 → ENPENDDIS 06-11 10:11 → 2NB 06-11 13:45
PROVIDERS: Internal Medicine; Physician Assistant; Student in an Organized Health Care Education/Training Program
DX: J44.1 Chronic obstructive pulmonary disease with (acute) exacerbation (principal); J45.901 Unspecified asthma with (acute) exacerbation; I08.2 Rheumatic disorders of both aortic and tricuspid valves; B96.1 Klebsiella pneumoniae [K. pneumoniae] as the cause of diseases classified elsewhere; J20.8 Acute bronchitis due to other specified organisms; J44.0 Chronic obstructive pulmonary disease with (acute) lower respiratory infection; R09.02 Hypoxemia; J10.1 Influenza due to other identified influenza virus with other respiratory manifestations; R00.0 Tachycardia, unspecified; I10 Essential (primary) hypertension; E78.5 Hyperlipidemia, unspecified; I25.10 Atherosclerotic heart disease of native coronary artery without angina pectoris; F32.9 Major depressive disorder, single episode, unspecified; K21.9 Gastro-esophageal reflux disease without esophagitis; Z87.891 Personal history of nicotine dependence
CPT/HCPCS: 2NBP; 2NBSP; 36415; 71045; 81003; 82436; 87040; 87070; 87071; 87449; 87450; 87804; 87804-59; 93005; 93010; 96374; 96375; 97116-GO; 97161-GP; J0131; J0456; J0696; J1650; J2920; J2930; J3101; J3490; J7060; J7512; J7608

== ENCOUNTER 2018-01-21 10:12 | Emergency (ER) | payer OTHER ==
[~2018-01-21] VITALS: Ht 154.9 cm; Wt 68.0 kg
[~2018-01-21 10:12] MED LIST changes: -CALCIUM 500 +1 EAC5 PO; +CALCIUM600 M3 PO; +LASIX20 M1 PO; +TAMIFLU75 M1 PO
[2018-01-21 14:08] VITALS: BP 181/53
[2018-01-21 14:12] LABS: PT 10.9 SEC (9.4-12.5); PTT 34 SEC (25-37)
[2018-01-21 14:19] LABS: HEMATOCRIT 36.6 % (37-47); MEAN CORPUSCULAR HGB 25.5 PG (27.0-31.0); MEAN CORPUSCULAR HGB CONC 32.8 G/DL (33.0-37.0); MEAN CORPUSCULAR VOLUME 77.8 FL (81.0-99.0); MEAN PLATELET VOLUME 8.9 FL (7.4-10.4); PLATELET COUNT 412 /CUMM (130-400); RBC DISTRIBUTION WIDTH 20.3 % (11.5-14.5); RED BLOOD CELL CT 4.71 /CUMM (4.20-5.40); WHITE BLOOD CELL COUNT 7.7 /CUMM (4.8-10.8)
--- NOTE | 2018-01-21 14:42 | ED GENERAL ADULT ---
History of Present Illness General Chief Complaint: General Adult Stated Complaint: SIB DR. GUZMAN FOR THROWING UP BLOOD Source: patient Exam Limitations: no limitations Vital Signs & Intake/Output Vital Signs & Intake/Output Vital Signs Date Time Temp Pulse Resp B/P B/P Pulse O2 O2 Flow FiO2 Mean Ox Delivery Rate 01/21 1408 97.5 62 20 181/53 99 Room Air 01/21 1404 96 Room Air 01/21 1038 97.4 74 20 124/84 98 Room Air Allergies Coded Allergies: No Known Allergies (03/16/17) Reconcile Medications Aspirin (Ecotrin*) 81 MG TABLET.DR 1 TAB PO DAILY heart health (Reported) Budesonide/Formoterol Fumarate (Symbicort 160-4.5 Mcg Inhaler) 160 MCG-4.5 MCG/ ACTUATION HFA.AER.AD 2 PUF INH BID ASTHMA (Reported) Calcium (Elemental-Fr Calcarb) (Calcium) 600 MG CALCIUM (1,500 MG) TABLET 2 TAB PO QPM SUPPLEMENT (Reported) Escitalopram Oxalate 10 MG TABLET 1 TAB PO QPM depression (Reported) Furosemide (Lasix) 20 MG TABLET 1 TAB PO DAILY DIURETIC (Reported) Pantoprazole Sodium 20 MG TABLET.DR 1 TAB PO DAILY GI (Reported) Pravastatin Sodium 80 MG TABLET 1 TAB PO QPM HLD (Reported) Risedronate Sodium (Actonel) 35 MG TABLET 1 TAB PO Mo BONE (Reported) Umeclidinium [place] (Incruse Ellipta) 62.5 MCG/ACTUATION BLST.W.DEV 1 PUFF PO DAILY BREATHING PROBLEMS (Reported) Triage Note: PT REPORTS SHE WOKE UP WITH BLOOD ON HER PILLOW, 2 DAYS IN A ROW, (SMALL AMOUNT WITH CLOTS.) REPORTS SHE IS ON ASPIRIN DAILY (81 MG) Triage Nurses Notes Reviewed? yes Onset: Abrupt HPI: Patient presents for evaluation of bleeding. Past History Travel History Traveled to [place] past 21 day No Medical History Any Pertinent Medical History? see below for history Neurological: NONE EENT: NONE Cardiovascular: hypertension Respiratory: asthma, COPD, pneumonia Gastrointestinal: NONE Hepatic: NONE Renal: NONE Musculoskeletal: ARTHRITIS Psychiatric: NONE Endocrine: NONE Blood Disorders: NONE Cancer(s): NONE FLAGSETTER/Reproductive: NONE History of MRSA: No History of VRE: No History of CDIFF: No Influenza Vaccine: 01/15/17 Surgical History Surgical History: R AND L KNEE REPLACEMENTS R AND L SHOULDER REPLACEM Psychosocial History Who do you live with Patient/Self Services at Home Nursing, Physical Therapy What is your primary language Portuguese Tobacco Use: Quit >30 days ago ETOH Use: denies use Family History Family History, If Any: Relation not specified for: *No pertinent family history Hx Contributory? No Review of Systems Review of Systems Constitutional: Reports: no symptoms. EENTM: Reports: no symptoms. Respiratory: Reports: no symptoms. Cardiovascular: Reports: no symptoms. GI: Reports: no symptoms. Genitourinary: Reports: no symptoms. Musculoskeletal: Reports: no symptoms. Skin: Reports: no symptoms. Neurological/Psychological: Reports: no symptoms. Hematologic/Endocrine: Reports: bleeding. Immunologic/Allergic: Reports: no symptoms. All Other Systems: Reviewed and Negative Physical Exam Physical Exam General Appearance: SEE BELOW Comments: Gen.: Well-nourished, well-developed, no acute respiratory distress. Head: Normocephalic, atraumatic. Eyes: Normal inspection bilaterally Ears: Normal inspection bilaterally Nose: Normal inspection, no apparent bleeding Throat/mouth : Moist mucosa , no apparent bleeding or other lesions Neck: Supple, full range of motion, no goiter Heart: Regular rate and rhythm, no murmurs rubs or gallops Lungs: Clear to auscultation bilaterally with normal air entry Chest: Nontender Back: Normal range of motion Abdomen: Soft, nontender, nondistended, normal bowel sounds Extremities: Normal range of motion grossly, equal radial pulses, no cyanosis clubbing or edema Neurologic: Cranial nerves grossly intact, speech is clear Skin: warm and dry Psychiatric: Calm, cooperative, no apparent delusions or hallucinations Rectal exam: Nontender, no hemorrhoids, no palpable masses, heme-negative brown stool Core Measures ACS in differential dx? No CVA/TIA Diagnosis: No Sepsis Present: No Sepsis Focused Exam Completed? No Progress Differential Diagnoses I considered the following diagnoses in my evaluation of the patient: See notes Plan of Care: Orders Procedure Date/time Status MISTAKE 01/21 1022 Active URINALYSIS 01/21 1022 Complete PARTIAL THROMBOPLASTIN TIME 01/21 1022 Complete PROTHROMBIN TIME 01/21 1022 Complete LIPASE 01/21 1022 Complete COMPREHENSIVE METABOLIC PANEL 01/21 1022 Complete CBC WITHOUT DIFFERENTIAL 01/21 1022 Complete Laboratory Tests 01/21/18 1635: Urine Color YEL, Urine Clarity HAZY H, Urine pH 7.5, Ur Specific [place] 1.010, Urine Protein NEG, Urine Ketones NEG, Urine Nitrite NEG, Urine Bilirubin NEG, Urine Urobilinogen 0.2, Ur Leukocyte Esterase MOD H, Ur Microscopic SEDIMENT EXAMINED, Urine WBC 1-3 H, Ur Epithelial Cells MOD H, Urine Bacteria FEW H, Urine Mucus RARE, Urine Hemoglobin NEG, Urine Glucose NEG 01/21/18 1351: Anion Gap 7, Estimated GFR > 60, BUN/Creatinine Ratio 16.7, Glucose 89, Calcium 9.5, Total Bilirubin 0.4, AST 25, ALT 37, Alkaline Phosphatase 64, Total Protein 6.6, Albumin 4.2, Globulin 2.4, Albumin/Globulin Ratio 1.8, Lipase 90, PT 10.9, INR 1.00, APTT 34, CBC w Diff MAN DIFF ORDERED, RBC 4.71, MCV 77.8 L, MCH 25.5 L, MCHC 32.8 L, RDW 20.3 H, MPV 8.9, Segmented Neutrophils 61, Lymphocytes 24, Monocytes 10 H, Eosinophils 3, Basophils 2, Platelet Estimate ADEQUATE, Normocytic RBCs VERIFIED, Normochromic RBCs VERIFIED Diagnostic Imaging: Discussed w/RAD: CT Scan. Radiology Impression: PATIENT: ERIN MEDINA PRESENT AGE: 82 PATIENT ACCOUNT NO: [id number] : 37 LOCATION: [facility] ORDERING PHYSICIAN: Kunal Aguilar MD SERVICE DATE: 01/21/18-1530 EXAM TYPE: CAT - CTA CHEST-PULMONARY EMBOLISM EXAMINATION: CT CHEST PE STUDY CLINICAL INFORMATION : Hemoptysis. Presumptive diagnosis of pulmonary embolism, mass, infiltrate. COMPARISON: CT scan of the chest dated 06/09/2017, 04/06/2017 and 02/13/2017. CTA of the chest dated 04/23/2017. TECHNIQUE: Prior to contrast administration, localization images were obtained. After the administration of 95 mL of intravenous Optiray 320, multidetector CT volume acquisition of the chest was performed. 3-D postprocessing was performed with multiplanar reconstructions and MIP images obtained at the acquisition workstation under concurrent physician supervision. DLP: 524.01 mGy-cm. FINDINGS: Evaluation is limited by extensive beam hardening artifact related to the patient's bilateral shoulder arthroplasties. Pulmonary arteries: The bolus timing on this study was acceptable for visualization of the pulmonary arterial tree. There are no intraluminal pulmonary arterial filling defects present to suggest pulmonary embolism in the main pulmonary artery, right and left main pulmonary artery, lobar and segmental branches. Lungs: Severe centrilobular emphysema again seen. Mild volume loss and atelectatic changes are seen in the dependent portions of both lower lobes with associated mild traction bronchiectasis in the right lower lobe. Several bilateral scattered calcified and noncalcified 2 to 4 mm pulmonary nodules are again seen, unchanged from prior exams dating back to at least 2016, favoring a benign etiology. Largest nodule measuring 4 mm is seen in the right upper lobe (series 2, image 165), unchanged. A few fissural based nodules are also seen, consistent with lymph nodes. No suspicious new or enlarging pulmonary nodules or masses. No pleural effusion or pneumothorax. The central airways are patent. Aorta and heart: The heart is normal in size. No significant midline shift of the interventricular septum is seen. No significant reflux of contrast into the IVC is noted. The aorta is normal in size with moderate to severe atherosclerotic calcification seen involving the aorta and branch vessels , including the renal arteries and coronary arteries. There is no pericardial effusion Lymphatic structures: Slight lymphoid tissue prominence is seen around the ioana and infrahilar regions adjacent to the pulmonary arteries, unchanged from 04/23/2017. There is no lymphadenopathy. Upper abdomen: A retrocardiac moderate-sized hiatal hernia is seen, containing the gastric fundus. There is an exophytic 0.8 cm intermediate attenuation mid right renal mass with mean attenuation values of 26 Hounsfield units, not accurately characterized given the small size, but not significantly changed dating back to 04/06/2017, consistent with a benign finding, such as a hyperdense cyst. Limited evaluation of the upper abdominal viscera demonstrates no other focal abnormality. Bones: Bilateral shoulder arthroplasties are seen. There is moderate to severe degenerative disc disease in the mid and lower thoracic spine. S-shaped thoracolumbar scoliosis is noted. Suspicious bone findings. IMPRESSION: 1. No evidence of pulmonary embolism. 2. Severe emphysema with stable bilateral scattered solid noncalcified nodules, scattered granulomas, and a few fissural based lymph nodes again seen, all unchanged compared to the prior studies dating back to at least 04/06/2017. No new or enlarging pulmonary nodule or mass seen. 3. No focal pneumonia. 4. Moderate to severe atherosclerotic vascular calcifications. 5. Probable hyperdense cyst in the mid right kidney. VTE: Negative DICTATED BY: Ilda Mcdaniel MD DATE/TIME DICTATED:01/21/181617 FAMILY MEDIATOR:ESTEPHANIE DATE/TIME TRANSCRIBED:01/21/181617 CONFIDENTIAL, DO NOT COPY WITHOUT APPROPRIATE AUTHORIZATION. <Electronically signed in Other Vendor System> SIGNED BY: Ilda Mcdaniel MD 01/21/181657 CXR Impression: PATIENT: ERIN MEDINA PRESENT AGE: 82 PATIENT ACCOUNT NO: [id number] : 37 LOCATION: [facility] ORDERING PHYSICIAN: Moisés Mims MD SERVICE DATE: 01/21/18 EXAM TYPE: RAD - XRY-CHEST XRAY, TWO VIEWS EXAMINATION: XR CHEST CLINICAL INFORMATION: Pneumonia. Hemoptysis. COMPARISON: Chest x-ray 06/01/2017 TECHNIQUE: 2 views of the chest were obtained. FINDINGS: There is hyperinflation of the lungs. The lungs are clear. There is no pleural effusion or pneumothorax. The heart size is normal. The cardiac and the mediastinal contours are normal. There are vascular calcifications of the aorta. Status post shoulder replacements bilaterally are partially imaged. There is multilevel degenerative spondylosis of the dorsal spine. IMPRESSION: No acute abnormality of the chest. DICTATED BY: Melvin Bailey MD DATE/TIME DICTATED:01/21/181500 FAMILY MEDIATOR:ESTEPHANIE DATE/TIME TRANSCRIBED:01/21/181500 CONFIDENTIAL, DO NOT COPY WITHOUT APPROPRIATE AUTHORIZATION. <Electronically signed in Other Vendor System> SIGNED BY: Melvin Bailey MD 01/21/181505 Initial ED EKG: none Comments: 01/21/2018 5:40:05 PM patient has had no apparent bleeding during her emergency department stay. CAT scan reveals no lesions to suggest hemoptysis. Rectal examination reveals no heme in the stool to suggest GI bleeding. Inspection of the nose and oropharynx are unremarkable although I suspect the patient's bleeding might have come from a transient nose bleeding episode. I feel the patient is stable for outpatient management. Departure Departure Disposition: HOME OR SELF CARE Condition: Stable Clinical Impression Primary Impression: Bleeding Referrals: Jacque Santillan MD (PCP/Family) Additional Instructions: Follow-up with your primary care doctor tomorrow for reevaluation. Return if any concerns or sudden worsening. Please note that there might be incidental findings in your evaluation that are unrelated to the current emergency department visit. Please notify your primary care doctor about this emergency department visit in order to obtain and review all of the testing performed so that these incidental findings can be monitored as needed. If you had an x-ray performed, please understand that some fractures or other findings may not be seen on the initial set of x-rays. If your symptoms persist you might need a repeat set of x-rays to check for such a fracture. If you had a laceration evaluated, please understand that foreign bodies such as glass or wood may not be visible to the naked eye or on plain x-rays. If the wound becomes red, swollen, increasingly more painful or if there is any drainage from the wound, please have it reevaluated by a physician for the possibility of a retained foreign body. If you're unable to follow up as outlined in the discharge instructions please return to the emergency department. Thank you for choosing the [facility] Emergency Department for your care. It was a pleasure to serve you today. Kunal Aguilar M.D. [facility] Departure Forms: Customer Survey General Discharge Information Critical Care Note Critical Care Note Critical Care Time: non-applicable
[2018-01-21] MEDS ORDERED: PANTOPRAZOLE SO20 M1 PO (15:01)
[2018-01-21] MEDS ORDERED: ACTONEL35 M1 PO (15:02)
[2018-01-21] MEDS ORDERED: INCRUSE ELLI62.5 MCG PO (15:02)
--- NOTE | 2018-01-21 15:06 | RADIOLOGY REPORT ---
EXAMINATION: XR CHEST CLINICAL INFORMATION: Pneumonia. Hemoptysis. COMPARISON: Chest x-ray 06/01/2017 TECHNIQUE: 2 views of the chest were obtained. FINDINGS: There is hyperinflation of the lungs. The lungs are clear. There is no pleural effusion or pneumothorax. The heart size is normal. The cardiac and the mediastinal contours are normal. There are vascular calcifications of the aorta. Status post shoulder replacements bilaterally are partially imaged. There is multilevel degenerative spondylosis of the dorsal spine. IMPRESSION: No acute abnormality of the chest.
--- NOTE | 2018-01-21 16:58 | CT SCAN REPORT ---
EXAMINATION: CT CHEST PE STUDY CLINICAL INFORMATION: Hemoptysis. Presumptive diagnosis of pulmonary embolism, mass, infiltrate. COMPARISON: CT scan of the chest dated 06/09/2017, 04/06/2017 and 02/13/2017. CTA of the chest dated 04/23/2017. TECHNIQUE: Prior to contrast administration, localization images were obtained. After the administration of 95 mL of intravenous Optiray 320, multidetector CT volume acquisition of the chest was performed. 3-D postprocessing was performed with multiplanar reconstructions and MIP images obtained at the acquisition workstation under concurrent physician supervision. DLP: 524.01 mGy-cm. FINDINGS: Evaluation is limited by extensive beam hardening artifact related to the patient's bilateral shoulder arthroplasties. Pulmonary arteries: The bolus timing on this study was acceptable for visualization of the pulmonary arterial tree. There are no intraluminal pulmonary arterial filling defects present to suggest pulmonary embolism in the main pulmonary artery, right and left main pulmonary artery, lobar and segmental branches. Lungs: Severe centrilobular emphysema again seen. Mild volume loss and atelectatic changes are seen in the dependent portions of both lower lobes with associated mild traction bronchiectasis in the right lower lobe. Several bilateral scattered calcified and noncalcified 2 to 4 mm pulmonary nodules are again seen, unchanged from prior exams dating back to at least 04/06/2017, favoring a benign etiology. Largest nodule measuring 4 mm is seen in the right upper lobe (series 2, image 165), unchanged. A few fissural based nodules are also seen, consistent with lymph nodes. No suspicious new or enlarging pulmonary nodules or masses. No pleural effusion or pneumothorax. The central airways are patent. Aorta and heart: The heart is normal in size. No significant midline shift of the interventricular septum is seen. No significant reflux of contrast into the IVC is noted. The aorta is normal in size with moderate to severe atherosclerotic calcification seen involving the aorta and branch vessels, including the renal arteries and coronary arteries. There is no pericardial effusion Lymphatic structures: Slight lymphoid tissue prominence is seen around the ioana and infrahilar regions adjacent to the pulmonary arteries, unchanged from 04/23/2017. There is no lymphadenopathy. Upper abdomen: A retrocardiac moderate-sized hiatal hernia is seen, containing the gastric fundus. There is an exophytic 0.8 cm intermediate attenuation mid right renal mass with mean attenuation values of 26 Hounsfield units, not accurately characterized given the small size, but not significantly changed dating back to 04/06/2017, consistent with a benign finding, such as a hyperdense cyst. Limited evaluation of the upper abdominal viscera demonstrates no other focal abnormality. Bones: Bilateral shoulder arthroplasties are seen. There is moderate to severe degenerative disc disease in the mid and lower thoracic spine. S-shaped thoracolumbar scoliosis is noted. Suspicious bone findings. IMPRESSION: 1. No evidence of pulmonary embolism. 2. Severe emphysema with stable bilateral scattered solid noncalcified nodules, scattered granulomas, and a few fissural based lymph nodes again seen, all unchanged compared to the prior studies dating back to at least 04/06/2017. No new or enlarging pulmonary nodule or mass seen. 3. No focal pneumonia. 4. Moderate to severe atherosclerotic vascular calcifications. 5. Probable hyperdense cyst in the mid right kidney. VTE: Negative
== END 2018-01-21 18:11 ==
LOC: ERH 10:12
PROVIDERS: Physician Assistant Medical
DX: K92.0 Hematemesis (principal); I10 Essential (primary) hypertension; J45.909 Unspecified asthma, uncomplicated; J44.9 Chronic obstructive pulmonary disease, unspecified; Z87.891 Personal history of nicotine dependence
CPT/HCPCS: 71046; 81001